=== PATIENT | female | born 1930 | race Caucasian/White ===

== ENCOUNTER 2018-05-24 15:32 | Inpatient (IN) | payer MEDICARE ==
[2018-05-24 17:06] LABS: CKMB 1.9 ng/mL (0-6.6)
[2018-05-24] MEDS ORDERED: Furosemide 40 MG/4 ML VIAL ONE (17:45)
--- NOTE | 2018-05-24 18:39 | ULT ---
BILATERAL LOWER EXTREMITY VENOUS DUPLEX ULTRASOUND: History: Bilateral lower extremity pain. Chest pain. FINDINGS: Exam performed from groin to ankle including visualized greater saphenous, common femoral, superficia l femoral, profunda femoral, popliteal, trifurcation, and posterior tibial vein regions. There is pha sic flow at all levels with normal compressibility and normal augmentation. No intraluminal thrombus. IMPRESSION: No evidence for deep venous thrombosis. POS: MARIANELA
[2018-05-24] MEDS ORDERED: Dextrose 5% in Water 1,000 ML IV PRN (19:27)
[2018-05-24] MEDS ORDERED: Senokot S 8.6-50 MG TAB PO PRN (19:27)
[2018-05-24] MEDS ORDERED: Guaifenesin DM 100-10/5 ML UDCUP PO PRN (19:27)
[2018-05-24] MEDS ORDERED: Dextrose 50% Abboject 50 ML SYRINGE SLOW IVP PRN (19:27)
[2018-05-24] MEDS ORDERED: Morphine 2 MG/ML SYRINGE ONE (20:22)
--- NOTE | 2018-05-24 20:40 | HP ---
REASON FOR ADMISSION: New onset CHF exacerbation, chest pain. HISTORY OF PRESENTING ILLNESS: The patient gives history of having chest pain in the retrosternal area last night. This lasted the whole night. She called her son at around 7:00 a.m. Then it finally eased out when he gave two tablets of sublingual nitroglycerin. But the patient developed the same pain again at 12: 15 p.m. This time it was 10/10 in intensity with no radiation. The pain is still present. But the intensity is around 2-3/10 at present. No cough or expectoration. No history of peptic ulcer in the past. No complaints of palpitations or PND. The patient had significant prior history of CABG for three-vessel disease done more than 15 years ago at [facility]. She has had two stents placed likely at [facility]. No complaints of fever, cough, or expectoration. PAST MEDICAL AND SURGICAL HISTORY: Hypertension, coronary artery disease,. Prior CABG 15 years ago at [facility], two stents placed, likely either at [facility] or at [facility] here. Has had a pacemaker placed by Dr. Nat Alford, school age program associate. Diabetes mellitus type 2, history of TIA, cholecystectomy, dyslipidemia, peripheral neuropathy, dementia, hypertension, and hypothyroidism. CURRENT MEDICATIONS: The patient is on; 1. Fenofibrate 145 mg p.o. daily. 2. Levothyroxine 88 mcg p.o. daily. 3. Hydralazine 25 mg p.o. three times daily. 4. Donepezil 10 mg daily. 5. Namenda extended release 14 mg daily. 6. Lyrica 75 mg three times daily. 7. Butler p.r.n. for pain. 8. Ranitidine 150 mg twice daily. 9. Meloxicam p.r.n. 10. Glargine insulin 18 units subcu q.a.m. 11. Pravastatin 40 mg p.o. daily. 12. Multivitamin one tablet once daily. 13. Aspirin 81 mg p.o. daily. 14. Plavix 75 mg p.o. daily. ALLERGIES: NO KNOWN DRUG ALLERGIES. PERSONAL HISTORY: Does not abuse alcohol or drugs. No history of smoking. FAMILY HISTORY: Mother at the age of 88 years. Father at the age of 70. Both of natural causes per family members at bedside. CODE STATUS: Full. Power of consumer attorney is her son. REVIEW OF SYSTEMS: CONSTITUTIONAL: Negative for weight loss or gain, ability to conduct usual activities. SKIN: Negative for rash, itching. EYES: Negative for double vision, pain. ENT/MOUTH: Negative for nose bleeding, neck stiffness, pain, tenderness. CARDIOVASCULAR: Negative for palpitations, dyspnea on exertion, orthopnea. RESPIRATORY: Negative for shortness of breath, wheezing, cough, hemoptysis, fever or night sweats. GASTROINTESTINAL: Negative for poor appetite, abdominal pain, heartburn, nausea , vomiting, constipation, or diarrhea. GENITOURINARY: Negative for urgency, frequency, dysuria, nocturia. MUSCULOSKELETAL: Negative for pain, swelling. NEUROLOGIC/PSYCHIATRIC: Negative for anxiety, depression. ALLERGY/IMMUNOLOGIC: Negative for skin rash, bleeding tendency. PHYSICAL EXAMINATION: GENERAL: The patient is an 88-year-old female, who is currently not in any acute distress and is chest pain-free at present. VITAL SIGNS: Blood pressure 160/74, pulse 80 per minute, respiratory rate 16 per minute, temperature 98.7 degrees Fahrenheit, saturating 95% on room air. NECK: Supple. No elevated JVD. HEENT: Eyes, extraocular muscles intact. Pupils reacting to light. Oral cavity, mucous membranes are moist. No exudates or congestion. CARDIOVASCULAR SYSTEM: S1, S2 heard. Regular rhythm. RESPIRATORY SYSTEM: Air entry 1+ bilateral. Basal rales plus bilateral. ABDOMEN: Soft. Bowel sounds heard. No tenderness, rigidity, or guarding. EXTREMITIES: No peripheral edema, but the left lower extremity is slightly bigger than the right lower extremity. She has had vein harvesting done on the right lower extremity, but the left is bigger in size. The peripheral pulses are 1+ bilateral. No ischemic ulcerations or gangrene. CENTRAL NERVOUS SYSTEM: No gross focal deficits noted. The patient is alert, awake, and fairly oriented. PSYCHIATRIC SYSTEM: The patient's mood is euthymic. No hallucinations or delusions. LABORATORY DATA: EKG done shows AFib at 83 beats per minute. There is nonspecific ST-T wave changes seen. White count of 5, H and H 10 and 31, platelet count 250 with 62% neutrophils, MCV is 97. Electrolytes stable. BUN 38, creatinine 1.7, serum glucose 157. Troponin I is indeterminate, peaking up to 0.08. BNP 1082. Albumin is 3.2. A chest x-ray done shows mild cardiomegaly with peripheral vascular congestion. Ultrasound venous Doppler of lower extremities done showed no evidence of DVT. CLINICAL IMPRESSION AND PLAN: The patient will be admitted to telemetry for acute new onset congestive heart failure exacerbation. The patient also has acute kidney injury on top of her likely chronic kidney disease. The patient likely follows up with [facility], but the family is unclear. She has seen Dr. Nat Alford, school age program associate, likely steel roller, who placed the pacemaker. She will be on Lasix 40 mg IV q.12 hourly. We will continue aspirin, Plavix, hydralazine, Pravachol, Zetia, and Lantus at 18 units daily. We will also continue her Tricor and ranitidine as before. Echo with 2D Doppler for LV function will be obtained. Likely her kidney function will get worse and the family is clearly aware. She likely has demand ischemia from congestive heart failure exacerbation. She has had prior coronary artery bypass graft done 15 years ago at [facility] and has had two stents placed after that, likely at [facility], which the family is not aware. We will obtain Cardiology consultation with Dr. Nixon and Renal consultation with Dr. Garcia who are on-call. Job ID: [id number] [facility]
[2018-05-24] MEDS ORDERED: Non-Formulary Item 1 EACH (Ranitidine Hcl [Ranitidine Hcl] 150 MG) PO SCH (21:00)
[2018-05-24] MEDS ORDERED: Pravastatin Sodium 40 MG TAB PO SCH (21:00)
[2018-05-24] MEDS ORDERED: Famotidine 20 MG TAB ONE (21:59)
[2018-05-25] MEDS: Famotidine 20 MG TAB PO SCH ×2 (00:59→20:18)
[2018-05-25] MEDS: Atorvastatin Calcium 10 MG TAB PO SCH ×2 (00:59→20:18)
[2018-05-25] MEDS ORDERED: hydrALAZINE 25 MG TAB PO SCH (02:15)
[2018-05-25] MEDS ORDERED: Pregabalin 75 MG CAP PO SCH (02:15)
[2018-05-25 04:24] VITALS: BMI 25.6
[2018-05-25 06:00] LABS: Anion Gap 12 mmol/L (10-20); BUN (Urea Nitrogen) 35 mg/dL (9.8-20.1); BUN/Creatinine Ratio 19.55; Calc. Creatinine Clearance 23 mL/min (70-130); Calcium 9.7 mg/dL (7.8-10.44); Carbon Dioxide 28 mmol/L (23-31); Chloride 103 mmol/L (98-107); Estimated GFR-MDRD 27; Glucose 124 mg/dL (83-110); Phosphorus 2.5 mg/dL (2.3-4.7); Potassium 3.5 mmol/L (3.5-5.1); Sodium 139 mmol/L (136-145)
[2018-05-25 06:16] LABS: Band 4 % (5-11); Hemoglobin 10.6 g/dL (12.0-16.0); Hypochromia SLIGHT = 6-15 cells (100X) (0-5/hpf); Lymphocytes 26 % (21-51); MDiff Complete? YES; Mean Corpuscular HGB CONC 33.1 g/dL (32.0-36.0); Mean Corpuscular Hemoglobin 32.5 pg (27.0-31.0); Mean Corpuscular Volume 98.2 fL (78.0-98.0); Mean Platelet Volume 7.1 fL (7.4-10.4); Monocytes 4 % (0-10); Neutrophil 66 % (42-75); Platelet Count 253 thou/uL (130-400); Platelet Morphology Comment Appears Adequate; RBC Distribution Width 12.6 % (11.5-14.5); Red Blood Cell (RBC) Count 3.25 mill/uL (4.20-5.40); White Blood Cell (WBC) Count 4.7 thou/uL (4.8-10.8)
[2018-05-25] MEDS: Furosemide 40 MG/4 ML VIAL SLOW IVP SCH ×2 (06:25→16:49)
[2018-05-25] MEDS: Levothyroxine Sodium 88 MCG TAB PO SCH (06:25)
[2018-05-25] MEDS ORDERED: Enoxaparin Sodium 40 MG/0.4 ML SYRINGE SC SCH (09:00)
[2018-05-25] MEDS ORDERED: INSULIN GLARGINE HUM REC ANLOG 18 UNIT SQ SCH (09:00)
[2018-05-25] MEDS ORDERED: Carvedilol 3.125 MG TAB PO SCH (09:15)
[2018-05-25] MEDS: Ezetimibe 10 MG TAB PO SCH (09:50)
[2018-05-25] MEDS: Fenofibrate Nanocrystallized 145 MG TAB PO SCH (09:50)
[2018-05-25] MEDS: hydrALAZINE 25 MG TAB PO SCH ×3 (09:50→16:49)
[2018-05-25] MEDS: Clopidogrel Bisulfate 75 MG TAB PO SCH (09:50)
[2018-05-25] MEDS: Insulin Glargine 18 UNITS in Pre-Filled Syringe 1 EACH SC SCH (09:50)
--- NOTE | 2018-05-25 13:33 | PDOC.PN ---
- Subjective Encounter Start Date: 05/25/18 Encounter Start Time: 09:30 Subjective: no sob, feels better -: no chest pain or palp - Objective Resuscitation Status - Order Detail: 05/24/18 19:20 Resuscitation Status Routine Resuscitation Status: FULL: Full Resuscitation MAR Reviewed: Yes Vital Signs & Weight: Vital Signs (12 hours) Temp Pulse Resp BP BP Pulse Ox 05/25/18 12:55 97.8 F 73 16 105/64 97 05/25/18 07:35 97.6 F 74 20 165/74 H 97 05/25/18 04:13 98.0 F 77 17 137/65 95 05/25/18 02:14 77 187/77 H Weight Weight 140 lb 1.6 oz I&O: 05/24/18 05/25/18 05/26/18 06:59 06:59 06:59 Intake Total 200 Output Total 700 Balance -500 Result Diagrams: 05/25/18 05:09 05/25/18 05:09 Additional Labs: Accuchecks 05/25/18 05/25/18 05/24/18 10:47 05:50 23:46 POC Glucose 212 H 126 H 218 H Phys Exam - Physical Examination HEENT: PERRLA, moist MMs Neck: no JVD, supple Respiratory: no wheezing, no rales Cardiovascular: RRR, no significant murmur Gastrointestinal: soft, non-tender, positive bowel sounds Musculoskeletal: no edema, pulses present Neurological: non-focal, moves all 4 limbs Psychiatric: normal affect, A&O x 3 Dx/Plan (1) Acute exacerbation of CHF (congestive heart failure) Code(s): I50.9 - HEART FAILURE, UNSPECIFIED Status: Acute Qualifiers: Heart failure type: unspecified Qualified Code(s): I50.9 - Heart failure, unspecified (2) HTN (hypertension) Code(s): I10 - ESSENTIAL (PRIMARY) HYPERTENSION Status: Chronic Qualifiers: Hypertension type: essential hypertension Qualified Code(s): I10 - Essential (primary) hypertension (3) Chest pain Code(s): R07.9 - CHEST PAIN, UNSPECIFIED Status: Resolved Qualifiers: Ischemic chest pain type: stable angina pectoris (4) CAD (coronary artery disease) Code(s): I25.10 - ATHSCL HEART DISEASE OF [place] CORONARY ARTERY W/O ANG PCTRS Status: Chronic Qualifiers: Coronary Disease-Associated Artery/Lesion type: bypass graft [place] vs. transplanted heart: [place] heart Associated angina: with stable angina Qualified Code(s): I25.708 - Atherosclerosis of coronary artery bypass graft(s) , unspecified, with other forms of angina pectoris (5) Dyslipidemia Code(s): E78.5 - HYPERLIPIDEMIA, UNSPECIFIED Status: Chronic (6) Hypothyroidism Code(s): E03.9 - HYPOTHYROIDISM, UNSPECIFIED Status: Chronic Qualifiers: Hypothyroidism type: unspecified Qualified Code(s): E03.9 - Hypothyroidism , unspecified (7) DM type 2 (diabetes mellitus, type 2) Status: Chronic Qualifiers: Diabetes mellitus jail insulin use: with jail use Diabetes mellitus complication status: with unspecified complications Qualified Code(s) : E11.8 - Type 2 diabetes mellitus with unspecified complications; Z79.4 - termite treater (current) use of insulin (8) DOT (acute kidney injury) Code(s): N17.9 - ACUTE KIDNEY FAILURE, UNSPECIFIED Status: Acute - Plan is on lasix q12h, will switch to oral in am -: echo is pending -: continue asp, lipitor,zetia,tricor,coreg,hydralazine -: likely has ckd -: to ambulate as tolerated * . Review of Systems - Medications/Allergies Allergies/Adverse Reactions: Allergies Allergy/AdvReac Type Severity Reaction Status Date / Time No Known Drug Allergies Allergy Verified 09/02/16 22:20 Medications: Current Medications Acetaminophen (Tylenol) 650 mg PO Q4H PRN PRN Reason: Headache/Fever/Mild Pain (1-3) Aspirin (Aspirin Chewable) 81 mg PO DAILY [facility] Last Admin: 05/25/18 09:45 Dose: 81 mg Atorvastatin Calcium (Lipitor) 10 mg PO QPM [facility] Last Admin: 05/25/18 00:59 Dose: Not Given Carvedilol (Coreg) 3.125 mg PO BID-[facility] Clopidogrel Bisulfate (Plavix) 75 mg PO DAILY [facility] Last Admin: 05/25/18 09:50 Dose: 75 mg Dextrose/Water (Dextrose 50%) 25 gm SLOW IVP PRN PRN PRN Reason: Hypoglycemia Ezetimibe (Zetia) 10 mg PO DAILY [facility] Last Admin: 05/25/18 09:50 Dose: 10 mg Enoxaparin Sodium (Lovenox) 40 mg SC 0900 [facility] Last Admin: 05/25/18 09:50 Dose: 40 mg Famotidine (Pepcid) 20 mg PO QPM [facility] Last Admin: 05/25/18 00:59 Dose: Not Given Fenofibrate (Tricor) 145 mg PO DAILY [facility] Last Admin: 05/25/18 09:50 Dose: 145 mg Furosemide (Lasix) 40 mg SLOW IVP 0600,1400 [facility] Last Admin: 05/25/18 06:25 Dose: 40 mg Glucagon (Glucagon) 1 mg IM PRN PRN PRN Reason: Hypoglycemia Guaifenesin/Dextromethorphan (Robitussin Dm) 15 ml PO Q4H PRN PRN Reason: Cough Hydralazine HCl (Apresoline) 25 mg PO TID-[facility] Last Admin: 05/25/18 13:03 Dose: Not Given Dextrose/Water (D5w) 1,000 mls @ 0 mls/hr IV .Q0M PRN PRN Reason: Hypoglycemia Insulin Glargine 18 units/ (Miscellaneous Medication) 0.18 mls @ 0 mls/hr SC QAM [facility] Last Admin: 05/25/18 09:50 Dose: 0.18 mls Insulin Human Lispro (Humalog) 0 units SC .MODERATE SLIDING SC PRN PRN Reason: Moderate Correctional Scale Levothyroxine Sodium (Synthroid) 88 mcg PO 0600 [facility] Last Admin: 05/25/18 06:25 Dose: 88 mcg Senna/Docusate Sodium (Senokot S) 2 tab PO BIDPRN PRN PRN Reason: Constipation Sodium Chloride (Flush - Normal Saline) 10 ml IVF PRN PRN PRN Reason: Saline Flush Tramadol HCl (Ultram) 25 mg PO DAILY PRN PRN Reason: Mild Pain (1-3)
[2018-05-25] MEDS: Carvedilol 3.125 MG TAB PO SCH (16:53)
[2018-05-25] MEDS: HumaLOG 300 UNITS/3 ML VIAL SC PRN ×2 (18:33→20:44)
[2018-05-25] MEDS: traMADol HCl 50 MG TAB PO PRN (18:35)
--- NOTE | 2018-05-26 03:14 | CON ---
DATE OF CONSULTATION: CONSULTING PHYSICIAN: Harvey Garcia MD REQUESTING PHYSICIAN: Dr. Park. REASON FOR CONSULTATION: Chest pain. IMPRESSION: Acute kidney injury versus chronic kidney disease. PLAN: 1. Hemodynamic support. 2. Further management will be dependent on the clinical course. HISTORY OF PRESENT ILLNESS: This is of 88-year-old female patient who presented with chest pain, chest discomfort, came to hospital today with elevated creatinine potential nephrotoxic agents. PAST MEDICAL HISTORY: Significant for hypertension; coronary artery disease, status post CABG, status post cardiac pacemaker, type 2 diabetes, history of TIA, cholecystectomy, dyslipidemia, hypertension. MEDICATIONS: Reviewed and as documented on [facility]. ALLERGIES: NO KNOWN DRUG ALLERGIES. SOCIAL HISTORY: No alcohol. No tobacco. No illicit drug use. FAMILY HISTORY: Noncontributory to the presenting illness. REVIEW OF SYSTEMS: As documented in the body of the history. All other systems reviewed and found not to be significantly related to present illness. PHYSICAL EXAMINATION: GENERAL: The patient was found not to be in any physical distress. VITAL SIGNS: Noted with the following vital signs; blood pressure of 160/74, pulse of 80, respiratory rate of 16, and O2 saturation 95%. HEENT: Examination unremarkable. CARDIOVASCULAR SYSTEM: First and second heart sounds were heard. RESPIRATORY: Significant for bilateral wheeze. DIGESTIVE SYSTEM: Revealed a benign abdomen. EXTREMITIES: No peripheral edema. SKIN: No new gross rash. LYMPHATICS: No peripheral lymphadenopathy. SUMMARY: An 88-year-old female patient who presented here with chest discomfort and shortness of breath, noted with elevated creatinine. Thank you for this consultation. We will follow with you. Job ID: [id number]
[2018-05-26 06:18] LABS: Albumin 2.9 g/dL (3.4-4.8); Anion Gap 13 mmol/L (10-20); BUN (Urea Nitrogen) 58 mg/dL (9.8-20.1); BUN/Creatinine Ratio 18.47; Calc. Creatinine Clearance 13 mL/min (70-130); Calcium 8.8 mg/dL (7.8-10.44); Carbon Dioxide 27 mmol/L (23-31); Chloride 99 mmol/L (98-107); Estimated GFR-MDRD 14; Glucose 146 mg/dL (83-110); Phosphorus 3.7 mg/dL (2.3-4.7); Potassium 3.8 mmol/L (3.5-5.1); Sodium 135 mmol/L (136-145)
[2018-05-26] MEDS: Levothyroxine Sodium 88 MCG TAB PO SCH (06:30)
[2018-05-26] MEDS ORDERED: Sodium Chloride 0.45% 1,000 ML IV SCH (08:00)
[2018-05-26] MEDS ORDERED: Furosemide 40 MG TAB PO SCH (09:00)
[2018-05-26] MEDS: Ezetimibe 10 MG TAB PO SCH (09:21)
[2018-05-26] MEDS: Insulin Glargine 18 UNITS in Pre-Filled Syringe 1 EACH SC SCH (09:21)
[2018-05-26] MEDS: Clopidogrel Bisulfate 75 MG TAB PO SCH (09:21)
[2018-05-26] MEDS: Fenofibrate Nanocrystallized 145 MG TAB PO SCH (09:21)
[2018-05-26] MEDS: Enoxaparin Sodium 30 MG/0.3 ML SYRINGE SC SCH (09:21)
[2018-05-26] MEDS: Carvedilol 3.125 MG TAB PO SCH ×2 (09:21→16:58)
--- NOTE | 2018-05-26 09:38 | CON ---
DATE OF CONSULTATION: HISTORY: Sally Katz is an 88-year-old white female, admitted with chest discomfort. She has history of CABG 15 years ago at [facility] in [place]. She also had 2 stents placed, although she is very unclear where that occurred. She thinks it was approximately 8 years ago and she has been on Plavix for the last 8 years. She also has a pacemaker, but is unable to tell me where that was placed and by which doctor. She also is uncertain of the type of pacemaker. Yesterday morning, she called her son at approximately 7:00 a.m., complaining of chest discomfort. She states that it lasted approximately 24 hours. She describes this as a tightness that was somewhat of a pounding sensation, seem to keep rhythm with her heartbeat. She denied any pleuritic component to the pain. Despite 24 hours of her symptoms, troponin I is in the low intermediate range. She has never been told that she has a weak heart, although I am uncertain of her recollection. PAST MEDICAL HISTORY: Hypertension, hypercholesterolemia, and pacemaker placement by Dr. Alford according to the hospital record, although she does not have a card in her possession at this time. Diabetes, history of TIA, peripheral neuropathy, dementia, and hypothyroidism. PAST SURGICAL HISTORY: Cholecystectomy and CABG. Pacemaker placement. MEDICATIONS: 1. Levothyroxine 88 mcg daily. 2. Aspirin 81 daily. 3. Aricept 10 mg at bedtime. 4. Fenofibrate 145 mg daily. 5. Apresoline 25 mg t.i.d. 6. Insulin 18 units q.a.m. 7. Mobic 7.5 daily. 8. Naproxen 220 b.i.d. 9. Lisbet 75 mg t.i.d. 10. Ranitidine 150 b.i.d. p.r.n. 11. Vitamin B complex. ALLERGIES: NONE. SOCIAL HISTORY: She does not smoke or drink. FAMILY HISTORY: Negative for coronary artery disease. REVIEW OF SYSTEMS: Negative, however, I am uncertain of her accuracy. PHYSICAL EXAMINATION: VITAL SIGNS: Blood pressure 104/58, pulse of 81. HEENT: PERRL. NECK: Supple. CHEST: Clear. CARDIOVASCULAR: S1 and S2 are normal. There are no S3, S4, or murmurs. ABDOMEN: Normal bowel sounds without tenderness. EXTREMITIES: Revealed no edema. SKIN: Warm and dry. NEUROLOGICAL: Grossly intact except for her memory. DIAGNOSTIC DATA: EKG revealed atrial fibrillation with nonspecific ST and T- wave changes. Echocardiogram revealed severe concentric left ventricular hypertrophy , severe left ventricular dysfunction with ejection fraction of 25% to 30%, moderate left atrial enlargement, moderate mitral regurgitation, aortic valvular sclerosis, and mild tricuspid regurgitation. Chest x-ray is unremarkable. Hemoglobin 10.6 , hematocrit 31.9, white count 4700, and platelets 253,000. Sodium 135, potassium 3.8, chloride 99, carbon dioxide 27, BUN is increased from 35 to 58, and creatinine is increased from 1.79 to 3.14. Troponin I is up to 0.087. BNP 1078.9. TSH is normal. IMPRESSION: 1. Severe left ventricular dysfunction with ejection fraction of 25% to 30% with severe left ventricular hypertrophy. 2. Status post coronary artery bypass grafting. 3. History of stent placement, exactly when and where is unclear. 4. Status post pacemaker placement. 5. Hypertension. 6. Hyperlipidemia. 7. Diabetes. 8. Hypothyroidism. 9. Chronic kidney disease with acute kidney injury. 10. Atrial fibrillation of uncertain duration. RECOMMENDATIONS: Ms. Katz certainly has severe left ventricular dysfunction. Her symptoms are somewhat unclear. She is in atrial fibrillation. It is unclear if that is a new finding or not. Some of her symptoms may have been related to a rapid rate; however, she is not exhibiting a rapid rate since being admitted. Certainly, thought needs to be given to upgrade to defibrillator at some time once it has been established that her left ventricular dysfunction is a permanent finding. Records have been requested from [facility] in [facility], which hopefully will shed more light on her current problems. It did appears that she has had demand ischemia. I doubt she has had myocardial infarction with her description of her symptoms lasting 24 hours and only indeterminate troponin I. Further recommendations will be made once we hopefully have more records available. Job ID: [id number] [facility]TDD
--- NOTE | 2018-05-26 10:52 | PDOC.PN ---
- Subjective Encounter Start Date: 05/26/18 Encounter Start Time: 10:00 Subjective: no sob or palp or chest pain - Objective Resuscitation Status - Order Detail: 05/24/18 19:20 Resuscitation Status Routine Resuscitation Status: FULL: Full Resuscitation MAR Reviewed: Yes Vital Signs & Weight: Vital Signs (12 hours) Temp Pulse Resp BP BP Pulse Ox 05/26/18 07:40 97.7 F 81 18 104/58 L 98 05/26/18 03:48 98.1 F 74 16 119/59 L 94 L Weight Weight 137 lb 9.6 oz I&O: 05/25/18 05/26/18 05/27/18 06:59 06:59 06:59 Intake Total 200 100 Output Total 700 350 Balance -500 -250 Result Diagrams: 05/25/18 05:09 05/26/18 05:26 Additional Labs: Accuchecks 05/26/18 05/25/18 05/25/18 05:26 20:27 16:28 POC Glucose 156 H 297 H 252 H 05/25/18 10:47 POC Glucose 212 H Phys Exam - Physical Examination HEENT: PERRLA, sclera anicteric Neck: no JVD, supple Respiratory: no wheezing, no rales Cardiovascular: RRR, no significant murmur Gastrointestinal: soft, non-tender, positive bowel sounds Musculoskeletal: no edema, pulses present Neurological: non-focal, moves all 4 limbs Psychiatric: normal affect Dx/Plan (1) Acute exacerbation of CHF (congestive heart failure) Code(s): I50.9 - HEART FAILURE, UNSPECIFIED Status: Acute Qualifiers: Heart failure type: systolic Qualified Code(s): I50.23 - Acute on chronic systolic (congestive) heart failure Comment: ef of 25%, severe concentric lvh (2) HTN (hypertension) Code(s): I10 - ESSENTIAL (PRIMARY) HYPERTENSION Status: Chronic Qualifiers: Hypertension type: essential hypertension Qualified Code(s): I10 - Essential (primary) hypertension (3) Chest pain Code(s): R07.9 - CHEST PAIN, UNSPECIFIED Status: Resolved Qualifiers: Ischemic chest pain type: stable angina pectoris (4) CAD (coronary artery disease) Code(s): I25.10 - ATHSCL HEART DISEASE OF [place] CORONARY ARTERY W/O ANG PCTRS Status: Chronic Qualifiers: Coronary Disease-Associated Artery/Lesion type: bypass graft [place] vs. transplanted heart: [place] heart Associated angina: with stable angina Qualified Code(s): I25.708 - Atherosclerosis of coronary artery bypass graft(s) , unspecified, with other forms of angina pectoris (5) Dyslipidemia Code(s): E78.5 - HYPERLIPIDEMIA, UNSPECIFIED Status: Chronic (6) Hypothyroidism Code(s): E03.9 - HYPOTHYROIDISM, UNSPECIFIED Status: Chronic Qualifiers: Hypothyroidism type: unspecified Qualified Code(s): E03.9 - Hypothyroidism , unspecified (7) DM type 2 (diabetes mellitus, type 2) Status: Chronic Qualifiers: Diabetes mellitus technician terminal and repeater insulin use: with technician terminal and repeater use Diabetes mellitus complication status: with unspecified complications Qualified Code(s) : E11.8 - Type 2 diabetes mellitus with unspecified complications; Z79.4 - adjunct faculty for medical terminology (current) use of insulin (8) DOT (acute kidney injury) Code(s): N17.9 - ACUTE KIDNEY FAILURE, UNSPECIFIED Status: Acute - Plan creatinine has gone up to 3.1 this am -: will dc lasix, gentle iv hydration -: tried calling son, cant reach him -: awaiting records from [facility] and [facility] -: on asp, coreg, zetia, tricor. DC hydralazine due to low sbp * . Review of Systems - Medications/Allergies Allergies/Adverse Reactions: Allergies Allergy/AdvReac Type Severity Reaction Status Date / Time No Known Drug Allergies Allergy Verified 09/02/16 22:20 Medications: Current Medications Acetaminophen (Tylenol) 650 mg PO Q4H PRN PRN Reason: Headache/Fever/Mild Pain (1-3) Aspirin (Aspirin Chewable) 81 mg PO DAILY [facility] Last Admin: 05/26/18 09:21 Dose: 81 mg Atorvastatin Calcium (Lipitor) 10 mg PO QPM [facility] Last Admin: 05/25/18 20:18 Dose: 10 mg Carvedilol (Coreg) 3.125 mg PO BID-[facility] Last Admin: 05/26/18 09:21 Dose: 3.125 mg Clopidogrel Bisulfate (Plavix) 75 mg PO DAILY [facility] Last Admin: 05/26/18 09:21 Dose: 75 mg Dextrose/Water (Dextrose 50%) 25 gm SLOW IVP PRN PRN PRN Reason: Hypoglycemia Ezetimibe (Zetia) 10 mg PO DAILY [facility] Last Admin: 05/26/18 09:21 Dose: 10 mg Enoxaparin Sodium (Lovenox) 30 mg SC 0900 [facility] Last Admin: 05/26/18 09:21 Dose: 30 mg Famotidine (Pepcid) 20 mg PO QPM [facility] Last Admin: 05/25/18 20:18 Dose: 20 mg Fenofibrate (Tricor) 145 mg PO DAILY [facility] Last Admin: 05/26/18 09:21 Dose: 145 mg Glucagon (Glucagon) 1 mg IM PRN PRN PRN Reason: Hypoglycemia Guaifenesin/Dextromethorphan (Robitussin Dm) 15 ml PO Q4H PRN PRN Reason: Cough Dextrose/Water (D5w) 1,000 mls @ 0 mls/hr IV .Q0M PRN PRN Reason: Hypoglycemia Insulin Glargine 18 units/ (Miscellaneous Medication) 0.18 mls @ 0 mls/hr SC QAM [facility] Last Admin: 05/26/18 09:21 Dose: 0.18 mls Sodium Chloride (1/2 Normal Saline) 1,000 mls @ 50 mls/hr IV .Q20H [facility] Stop: 05/27/18 03:59 Last Admin: 05/26/18 09:20 Dose: 1,000 mls Insulin Human Lispro (Humalog) 0 units SC .MODERATE SLIDING SC PRN PRN Reason: Moderate Correctional Scale Last Admin: 05/25/18 20:44 Dose: 6 unit Levothyroxine Sodium (Synthroid) 88 mcg PO 0600 [facility] Last Admin: 05/26/18 06:30 Dose: 88 mcg Senna/Docusate Sodium (Senokot S) 2 tab PO BIDPRN PRN PRN Reason: Constipation Sodium Chloride (Flush - Normal Saline) 10 ml IVF PRN PRN PRN Reason: Saline Flush Tramadol HCl (Ultram) 25 mg PO DAILY PRN PRN Reason: Mild Pain (1-3) Last Admin: 05/25/18 18:35 Dose: 25 mg
[2018-05-26] MEDS: HumaLOG 300 UNITS/3 ML VIAL SC PRN (11:53)
[2018-05-26] MEDS: Famotidine 20 MG TAB PO SCH (21:31)
[2018-05-26] MEDS: Atorvastatin Calcium 10 MG TAB PO SCH (21:31)
--- NOTE | 2018-05-26 22:15 | PRG ---
DATE OF SERVICE: 05/26/2018 SUBJECTIVE: The patient noted with the following vital signs. OBJECTIVE: VITAL SIGNS: Afebrile. Temperature 97.7, pulse 74, respiratory rate of 18, O2 saturation of 98% with a blood pressure of 108/59. HEENT: Unremarkable. CARDIOVASCULAR SYSTEM: First and second heart sounds were heard. RESPIRATORY SYSTEM: Clear to auscultation. DIGESTIVE SYSTEM: Revealed a benign abdomen. EXTREMITIES: No peripheral edema. SKIN: No new gross rash. LYMPHATICS: No peripheral lymphadenopathy. LABORATORY INVESTIGATION: Significant for creatinine that has gone up to 3.14 with BUN of 58. IMPRESSION: 1. Acute on chronic kidney disease. This is likely hemodynamically mediated/cardiorenal syndrome in the context of relative low blood pressure as compared to the patient's baseline blood pressure that is to be on the higher side. 2. Chest discomfort, query cause, may be related to cardiac arrhythmia, versus coronary artery disease. PLAN: 1. Hemodynamic support and avoid potentially nephrotoxic agents. 2. . 3. For this patient undergo any form of cardiac transition, we will strongly recommend the lowest possible dose in conjunction with contrast prophylaxis. 4. I do agree with gentle rehydration. 5. Further management to be dependent on the clinical course. Job ID: [id number]
[2018-05-27] MEDS: HumaLOG 300 UNITS/3 ML VIAL SC PRN ×3 (00:14→21:01)
[2018-05-27 06:08] LABS: Albumin 2.7 g/dL (3.4-4.8); Anion Gap 13 mmol/L (10-20); BUN (Urea Nitrogen) 82 mg/dL (9.8-20.1); BUN/Creatinine Ratio 20.65; Calc. Creatinine Clearance 10 mL/min (70-130); Calcium 8.5 mg/dL (7.8-10.44); Carbon Dioxide 27 mmol/L (23-31); Chloride 99 mmol/L (98-107); Estimated GFR-MDRD 11; Glucose 144 mg/dL (83-110); Phosphorus 4.5 mg/dL (2.3-4.7); Potassium 3.6 mmol/L (3.5-5.1); Sodium 135 mmol/L (136-145)
[2018-05-27] MEDS: Levothyroxine Sodium 88 MCG TAB PO SCH (06:15)
[2018-05-27] MEDS: Sodium Chloride 0.45% 1,000 ML IV SCH ×2 (07:59→21:00)
[2018-05-27] MEDS: Carvedilol 3.125 MG TAB PO SCH ×2 (08:00→17:09)
[2018-05-27] MEDS: Fenofibrate Nanocrystallized 145 MG TAB PO SCH (08:00)
[2018-05-27] MEDS: Clopidogrel Bisulfate 75 MG TAB PO SCH (08:00)
[2018-05-27] MEDS: Ezetimibe 10 MG TAB PO SCH (08:00)
[2018-05-27] MEDS: Enoxaparin Sodium 30 MG/0.3 ML SYRINGE SC SCH (08:00)
[2018-05-27] MEDS: Insulin Glargine 18 UNITS in Pre-Filled Syringe 1 EACH SC SCH (08:00)
--- NOTE | 2018-05-27 13:55 | PDOC.PN ---
- Subjective Encounter Start Date: 05/27/18 Encounter Start Time: 10:35 Subjective: no sob, no complaints of chest pain or palp -: slept better last night - Objective Resuscitation Status - Order Detail: 05/24/18 19:20 Resuscitation Status Routine Resuscitation Status: FULL: Full Resuscitation MAR Reviewed: Yes Vital Signs & Weight: Vital Signs (12 hours) Temp Pulse Pulse Pulse Resp BP BP 05/27/18 11:43 97.9 F 70 16 05/27/18 10:25 69 70 151/66 H 131/59 L 05/27/18 08:00 05/27/18 07:28 97.9 F 75 16 05/27/18 03:38 97.9 F 71 16 BP Pulse Ox 05/27/18 11:43 116/56 L 97 05/27/18 10:25 05/27/18 08:00 97 05/27/18 07:28 102/53 L 97 05/27/18 03:38 118/57 L 97 Weight Weight 142 lb 12.8 oz I&O: 05/26/18 05/27/18 05/28/18 06:59 06:59 06:59 Intake Total 100 1111 Output Total 350 Balance -250 1111 Result Diagrams: 05/25/18 05:09 05/27/18 05:02 Additional Labs: Accuchecks 05/27/18 05/27/18 05/26/18 11:24 05:52 20:25 POC Glucose 326 H 158 H 279 H 05/26/18 16:52 POC Glucose 195 H Phys Exam - Physical Examination HEENT: PERRLA, moist MMs Neck: no JVD, supple Respiratory: no wheezing, no rales Cardiovascular: RRR, no significant murmur Gastrointestinal: soft, non-tender, positive bowel sounds Musculoskeletal: no edema, pulses present Neurological: non-focal, moves all 4 limbs Psychiatric: normal affect, A&O x 3 Dx/Plan (1) DOT (acute kidney injury) Code(s): N17.9 - ACUTE KIDNEY FAILURE, UNSPECIFIED Status: Acute (2) Acute exacerbation of CHF (congestive heart failure) Code(s): I50.9 - HEART FAILURE, UNSPECIFIED Status: Acute Qualifiers: Heart failure type: systolic Qualified Code(s): I50.23 - Acute on chronic systolic (congestive) heart failure Comment: ef of 25%, severe concentric lvh (3) HTN (hypertension) Code(s): I10 - ESSENTIAL (PRIMARY) HYPERTENSION Status: Chronic Qualifiers: Hypertension type: essential hypertension Qualified Code(s): I10 - Essential (primary) hypertension (4) Chest pain Code(s): R07.9 - CHEST PAIN, UNSPECIFIED Status: Resolved Qualifiers: Ischemic chest pain type: stable angina pectoris (5) CAD (coronary artery disease) Code(s): I25.10 - ATHSCL HEART DISEASE OF [place] CORONARY ARTERY W/O ANG PCTRS Status: Chronic Qualifiers: Coronary Disease-Associated Artery/Lesion type: bypass graft [place] vs. 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) , unspecified, with other forms of angina pectoris (6) Dyslipidemia Code(s): E78.5 - HYPERLIPIDEMIA, UNSPECIFIED Status: Chronic (7) Hypothyroidism Code(s): E03.9 - HYPOTHYROIDISM, UNSPECIFIED Status: Chronic Qualifiers: Hypothyroidism type: unspecified Qualified Code(s): E03.9 - Hypothyroidism , unspecified (8) DM type 2 (diabetes mellitus, type 2) Status: Chronic Qualifiers: Diabetes mellitus fdc insulin use: with fdc use Diabetes mellitus complication status: with unspecified complications Qualified Code(s) : E11.8 - Type 2 diabetes mellitus with unspecified complications; 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 d/w son Mr.Bob Avilez over phone and gave complete updates and current plan. Review of Systems - Medications/Allergies Allergies/Adverse Reactions: Allergies Allergy/AdvReac Type Severity Reaction Status Date / Time No Known Drug Allergies Allergy Verified 09/02/16 22:20 Medications: Current Medications Acetaminophen (Tylenol) 650 mg PO Q4H PRN PRN Reason: Headache/Fever/Mild Pain (1-3) Aspirin (Aspirin Chewable) 81 mg PO DAILY [place] Last Admin: 05/27/18 08:00 Dose: 81 mg Atorvastatin Calcium (Lipitor) 10 mg PO QPM [facility] Last Admin: 05/26/18 21:31 Dose: 10 mg Carvedilol (Coreg) 3.125 mg PO BID[facility] Last Admin: 05/27/18 08:00 Dose: 3.125 mg Clopidogrel Bisulfate (Plavix) 75 mg PO DAILY [facility] Last Admin: 05/27/18 08:00 Dose: 75 mg Dextrose/Water (Dextrose 50%) 25 gm SLOW IVP PRN PRN PRN Reason: Hypoglycemia Ezetimibe (Zetia) 10 mg PO DAILY [facility] Last Admin: 05/27/18 08:00 Dose: 10 mg Enoxaparin Sodium (Lovenox) 30 mg SC 0900 [facility] Last Admin: 05/27/18 08:00 Dose: 30 mg Famotidine (Pepcid) 20 mg PO QPM [facility] Last Admin: 05/26/18 21:31 Dose: 20 mg Fenofibrate (Tricor) 145 mg PO DAILY [facility] Last Admin: 05/27/18 08:00 Dose: 145 mg Glucagon (Glucagon) 1 mg IM PRN PRN PRN Reason: Hypoglycemia Guaifenesin/Dextromethorphan (Robitussin Dm) 15 ml PO Q4H PRN PRN Reason: Cough Dextrose/Water (D5w) 1,000 mls @ 0 mls/hr IV .Q0M PRN PRN Reason: Hypoglycemia Insulin Glargine 18 units/ (Miscellaneous Medication) 0.18 mls @ 0 mls/hr SC QAM [facility] Last Admin: 05/27/18 08:00 Dose: 0.18 mls Sodium Chloride (1/2 Normal Saline) 1,000 mls @ 75 mls/hr IV .[id number] [facility] Last Admin: 05/27/18 07:59 Dose: 1,000 mls Insulin Human Lispro (Humalog) 0 units SC .MODERATE SLIDING SC PRN PRN Reason: Moderate Correctional Scale Last Admin: 05/27/18 11:47 Dose: 8 unit Insulin Human Lispro (Humalog) 0 units SC .BEDTIME SLIDING SC PRN; Protocol PRN Reason: BEDTIME SLIDING SCALE Last Admin: 05/27/18 00:14 Dose: 3 unit Levothyroxine Sodium (Synthroid) 88 mcg PO 0600 [facility] Last Admin: 05/27/18 06:15 Dose: 88 mcg Senna/Docusate Sodium (Senokot S) 2 tab PO BIDPRN PRN PRN Reason: Constipation Sodium Chloride (Flush - Normal Saline) 10 ml IVF PRN PRN PRN Reason: Saline Flush Last Admin: 05/27/18 08:01 Dose: 10 ml Tramadol HCl (Ultram) 25 mg PO DAILY PRN PRN Reason: Mild Pain (1-3) Last Admin: 05/25/18 18:35 Dose: 25 mg
[2018-05-27] MEDS: Atorvastatin Calcium 10 MG TAB PO SCH (21:02)
[2018-05-27] MEDS: Famotidine 20 MG TAB PO SCH (21:02)
--- NOTE | 2018-05-27 23:15 | PRG ---
DATE OF SERVICE: 05/27/2018 SUBJECTIVE: The patient was seen and examined, no new complaint, noted with the following vital signs. OBJECTIVE: VITAL SIGNS: Afebrile, temperature 97.8; pulse 70; respiratory rate of 16; O2 saturation of 97% with blood pressure of 114/58. HEENT: Unremarkable. CARDIOVASCULAR SYSTEM: First and second heart sounds were heard. RESPIRATORY SYSTEM: Clear to auscultation. DIGESTIVE SYSTEM: Revealed a benign abdomen with positive bowel sounds. EXTREMITIES: No peripheral edema. SKIN: No new gross rash. LYMPHATICS: No peripheral lymphadenopathy. LABORATORY INVESTIGATION: Showed a creatinine of 3.97. IMPRESSION: Acute on chronic kidney disease, more or less hemodynamically mediated. PLAN: 1. I do agree with gentle IV fluid rehydration. 2. Avoid potentially nephrotoxic agents. 3. Renally dose all medications. 4. Further management will be dependent on the clinical course. Job ID: [id number]
[2018-05-28 05:38] LABS: Albumin 2.6 g/dL (3.4-4.8); Anion Gap 11 mmol/L (10-20); BUN (Urea Nitrogen) 75 mg/dL (9.8-20.1); BUN/Creatinine Ratio 26.88; Calc. Creatinine Clearance 15 mL/min (70-130); Calcium 8.4 mg/dL (7.8-10.44); Carbon Dioxide 27 mmol/L (23-31); Chloride 103 mmol/L (98-107); Estimated GFR-MDRD 16; Glucose 118 mg/dL (83-110); Phosphorus 3.6 mg/dL (2.3-4.7); Potassium 3.6 mmol/L (3.5-5.1); Sodium 137 mmol/L (136-145)
[2018-05-28] MEDS: Levothyroxine Sodium 88 MCG TAB PO SCH (05:45)
[2018-05-28] MEDS: Rivaroxaban 10 MG TAB PO SCH (09:00)
[2018-05-28] MEDS: Carvedilol 3.125 MG TAB PO SCH ×2 (09:00→17:31)
[2018-05-28] MEDS: Amiodarone 200 MG TAB PO SCH ×3 (09:00→20:45)
[2018-05-28] MEDS: Clopidogrel Bisulfate 75 MG TAB PO SCH (09:00)
[2018-05-28] MEDS: Insulin Glargine 18 UNITS in Pre-Filled Syringe 1 EACH SC SCH (09:00)
[2018-05-28] MEDS: Fenofibrate Nanocrystallized 145 MG TAB PO SCH (09:00)
[2018-05-28] MEDS: Ezetimibe 10 MG TAB PO SCH (09:01)
[2018-05-28] MEDS: Acetaminophen 325 MG TAB PO PRN (09:05)
--- NOTE | 2018-05-28 11:40 | PDOC.PN ---
- Subjective Encounter Start Date: 05/28/18 Encounter Start Time: 10:40 Subjective: no trouble breathing or chest pain -: slept well last night - Objective Resuscitation Status - Order Detail: 05/24/18 19:20 Resuscitation Status Routine Resuscitation Status: FULL: Full Resuscitation MAR Reviewed: Yes Vital Signs & Weight: Vital Signs (12 hours) Temp Pulse Resp BP BP Pulse Ox 05/28/18 09:15 96 05/28/18 07:40 98.0 F 69 18 131/61 96 05/28/18 03:24 97.9 F 81 15 120/58 L 97 Weight Weight 143 lb 4.8 oz I&O: 05/27/18 05/28/18 05/29/18 06:59 06:59 06:59 Intake Total 1111 1520 Balance 1111 1520 Result Diagrams: 05/25/18 05:09 05/28/18 04:51 Additional Labs: Accuchecks 05/28/18 05/28/18 05/27/18 11:22 05:36 20:45 POC Glucose 140 H 110 241 H 05/27/18 05/27/18 16:18 11:24 POC Glucose 106 326 H Phys Exam - Physical Examination HEENT: PERRLA, moist MMs Neck: no JVD, supple Respiratory: no wheezing, no rales Cardiovascular: RRR, no significant murmur Gastrointestinal: soft, non-tender, positive bowel sounds Musculoskeletal: no edema, pulses present Neurological: non-focal, moves all 4 limbs Psychiatric: normal affect, A&O x 3 Dx/Plan (1) DOT (acute kidney injury) Code(s): N17.9 - ACUTE KIDNEY FAILURE, UNSPECIFIED Status: Acute (2) Acute exacerbation of CHF (congestive heart failure) Code(s): I50.9 - HEART FAILURE, UNSPECIFIED Status: Acute Qualifiers: Heart failure type: systolic Qualified Code(s): I50.23 - Acute on chronic systolic (congestive) heart failure Comment: ef of 25%, severe concentric lvh (3) HTN (hypertension) Code(s): I10 - ESSENTIAL (PRIMARY) HYPERTENSION Status: Chronic Qualifiers: Hypertension type: essential hypertension Qualified Code(s): I10 - Essential (primary) hypertension (4) Chest pain Code(s): R07.9 - CHEST PAIN, UNSPECIFIED Status: Resolved Qualifiers: Ischemic chest pain type: stable angina pectoris (5) CAD (coronary artery disease) Code(s): I25.10 - ATHSCL HEART DISEASE OF [place] CORONARY ARTERY W/O ANG PCTRS Status: Chronic Qualifiers: Coronary Disease-Associated Artery/Lesion type: bypass graft [place] vs. transplanted heart: [place] heart Associated angina: with stable angina Qualified Code(s): I25.708 - Atherosclerosis of coronary artery bypass graft(s) , unspecified, with other forms of angina pectoris (6) Dyslipidemia Code(s): E78.5 - HYPERLIPIDEMIA, UNSPECIFIED Status: Chronic (7) Hypothyroidism Code(s): E03.9 - HYPOTHYROIDISM, UNSPECIFIED Status: Chronic Qualifiers: Hypothyroidism type: unspecified Qualified Code(s): E03.9 - Hypothyroidism , unspecified (8) DM type 2 (diabetes mellitus, type 2) Status: Chronic Qualifiers: Diabetes mellitus [place] insulin use: with custodial use Diabetes mellitus complication status: with unspecified complications Qualified Code(s) : E11.8 - Type 2 diabetes mellitus with unspecified complications; 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 Review of Systems - Medications/Allergies Allergies/Adverse Reactions: Allergies Allergy/AdvReac Type Severity Reaction Status Date / Time No Known Drug Allergies Allergy Verified 09/02/16 22:20 Medications: Current Medications Acetaminophen (Tylenol) 650 mg PO Q4H PRN PRN Reason: Headache/Fever/Mild Pain (1-3) Last Admin: 05/28/18 09:05 Dose: 650 mg Amiodarone HCl (Cordarone) 400 mg PO TID [facility] Last Admin: 05/28/18 09:00 Dose: 400 mg Aspirin (Aspirin Chewable) 81 mg PO DAILY [facility] Last Admin: 05/28/18 09:00 Dose: 81 mg Atorvastatin Calcium (Lipitor) 10 mg PO QPM [facility] Last Admin: 05/27/18 21:02 Dose: 10 mg Carvedilol (Coreg) 3.125 mg PO BID-[facility] Last Admin: 05/28/18 09:00 Dose: 3.125 mg Clopidogrel Bisulfate (Plavix) 75 mg PO DAILY [facility] Last Admin: 05/28/18 09:00 Dose: 75 mg Dextrose/Water (Dextrose 50%) 25 gm SLOW IVP PRN PRN PRN Reason: Hypoglycemia Ezetimibe (Zetia) 10 mg PO DAILY [facility] Last Admin: 05/28/18 09:01 Dose: 10 mg Famotidine (Pepcid) 20 mg PO QPM [facility] Last Admin: 05/27/18 21:02 Dose: 20 mg Fenofibrate (Tricor) 145 mg PO DAILY [facility] Last Admin: 05/28/18 09:00 Dose: 145 mg Glucagon (Glucagon) 1 mg IM PRN PRN PRN Reason: Hypoglycemia Guaifenesin/Dextromethorphan (Robitussin Dm) 15 ml PO Q4H PRN PRN Reason: Cough Dextrose/Water (D5w) 1,000 mls @ 0 mls/hr IV .Q0M PRN PRN Reason: Hypoglycemia Insulin Glargine 18 units/ (Miscellaneous Medication) 0.18 mls @ 0 mls/hr SC QAM [facility] Last Admin: 05/28/18 09:00 Dose: 0.18 mls Sodium Chloride (1/2 Normal Saline) 1,000 mls @ 75 mls/hr IV .[id number] [facility] Last Admin: 05/27/18 21:00 Dose: 1,000 mls Insulin Human Lispro (Humalog) 0 units SC .MODERATE SLIDING SC PRN PRN Reason: Moderate Correctional Scale Last Admin: 05/27/18 11:47 Dose: 8 unit Insulin Human Lispro (Humalog) 0 units SC .BEDTIME SLIDING SC PRN; Protocol PRN Reason: BEDTIME SLIDING SCALE Last Admin: 05/27/18 21:01 Dose: 2 unit Levothyroxine Sodium (Synthroid) 88 mcg PO 0600 [facility] Last Admin: 05/28/18 05:45 Dose: 88 mcg Rivaroxaban (Xarelto) 15 mg PO DAILY [facility] Last Admin: 05/28/18 09:00 Dose: 15 mg Senna/Docusate Sodium (Senokot S) 2 tab PO BIDPRN PRN PRN Reason: Constipation Sodium Chloride (Flush - Normal Saline) 10 ml IVF PRN PRN PRN Reason: Saline Flush Last Admin: 05/27/18 08:01 Dose: 10 ml Tramadol HCl (Ultram) 25 mg PO DAILY PRN PRN Reason: Mild Pain (1-3) Last Admin: 05/25/18 18:35 Dose: 25 mg
[2018-05-28] MEDS: Sodium Chloride 0.45% 1,000 ML IV SCH ×2 (11:47→20:48)
[2018-05-28] MEDS: traMADol HCl 50 MG TAB PO PRN (17:33)
[2018-05-28] MEDS: HumaLOG 300 UNITS/3 ML VIAL SC PRN ×2 (17:34→20:43)
[2018-05-28] MEDS: Atorvastatin Calcium 10 MG TAB PO SCH (20:45)
[2018-05-28] MEDS: Famotidine 20 MG TAB PO SCH (20:45)
--- NOTE | 2018-05-29 00:40 | PRG ---
DATE OF SERVICE: SUBJECTIVE: The patient seems to be doing much better. Noted with following vital signs. OBJECTIVE: VITAL SIGNS: Temperature 97.7, pulse 70, respiratory rate of 18, O2 saturation of 96% with a blood pressure 143/66. HEENT: Unremarkable. Moist oral mucosa. NECK: Supple. No conjunctival injection or icterus. CARDIOVASCULAR SYSTEM: First and second heart sounds were heard. RESPIRATORY SYSTEM: Clear to auscultation. DIGESTIVE SYSTEM: Benign abdomen with positive bowel sounds. EXTREMITIES: No peripheral edema. SKIN: No new gross rash. LABORATORY INVESTIGATION: Significant for creatinine that has gone down to 2.79. IMPRESSION: [id number] kidney disease, hemodynamically mediated, responded very well to supportive treatment. PLAN: 1. Continue the renal supportive measures for now. 2. Renally dose all medications and avoid potentially nephrotoxic agents. 3. Further management to be dependent on the clinical course. Job ID: [id number]
[2018-05-29 05:41] LABS: Albumin 2.7 g/dL (3.4-4.8); Anion Gap 9 mmol/L (10-20); BUN (Urea Nitrogen) 60 mg/dL (9.8-20.1); Calc. Creatinine Clearance 19 mL/min (70-130); Calcium 8.4 mg/dL (7.8-10.44); Carbon Dioxide 26 mmol/L (23-31); Chloride 107 mmol/L (98-107); Estimated GFR-MDRD 21; Glucose 94 mg/dL (83-110); Sodium 138 mmol/L (136-145)
[2018-05-29] MEDS: Levothyroxine Sodium 88 MCG TAB PO SCH (05:49)
[2018-05-29] MEDS: Insulin Glargine 18 UNITS in Pre-Filled Syringe 1 EACH SC SCH (08:41)
[2018-05-29] MEDS: Fenofibrate Nanocrystallized 145 MG TAB PO SCH (08:42)
[2018-05-29] MEDS: Amiodarone 200 MG TAB PO SCH ×3 (08:42→19:58)
[2018-05-29] MEDS: Ezetimibe 10 MG TAB PO SCH (08:42)
[2018-05-29] MEDS: Carvedilol 3.125 MG TAB PO SCH ×2 (08:42→18:03)
[2018-05-29] MEDS: Clopidogrel Bisulfate 75 MG TAB PO SCH (08:42)
[2018-05-29] MEDS: Rivaroxaban 10 MG TAB PO SCH (09:54)
--- NOTE | 2018-05-29 12:02 | PDOC.PN ---
- Subjective Encounter Start Date: 05/29/18 Encounter Start Time: 08:45 Subjective: no sob, slept well -: is amb in room - Objective Resuscitation Status - Order Detail: 05/24/18 19:20 Resuscitation Status Routine Resuscitation Status: FULL: Full Resuscitation MAR Reviewed: Yes Vital Signs & Weight: Vital Signs (12 hours) Temp Pulse Resp BP BP Pulse Ox 05/29/18 11:02 97.6 F 70 18 137/61 96 05/29/18 07:16 97.7 F 69 18 128/60 94 L 05/29/18 03:10 97.7 F 70 16 127/60 94 L Weight Weight 146 lb 8 oz I&O: 05/28/18 05/29/18 05/30/18 06:59 06:59 06:59 Intake Total 1520 Balance 1520 Result Diagrams: 05/25/18 05:09 05/29/18 04:48 Additional Labs: Accuchecks 05/29/18 05/29/18 05/28/18 10:28 05:33 20:41 POC Glucose 189 H 106 214 H 05/28/18 17:33 POC Glucose 265 H Phys Exam - Physical Examination HEENT: PERRLA, moist MMs Neck: no JVD, supple Respiratory: no wheezing, no rales Cardiovascular: RRR, no significant murmur Gastrointestinal: soft, non-tender, positive bowel sounds Musculoskeletal: no edema, pulses present Neurological: non-focal, moves all 4 limbs Dx/Plan (1) DOT (acute kidney injury) Code(s): N17.9 - ACUTE KIDNEY FAILURE, UNSPECIFIED Status: Acute (2) Acute exacerbation of CHF (congestive heart failure) Code(s): I50.9 - HEART FAILURE, UNSPECIFIED Status: Acute Qualifiers: Heart failure type: systolic Qualified Code(s): I50.23 - Acute on chronic systolic (congestive) heart failure Comment: ef of 25%, severe concentric lvh (3) HTN (hypertension) Code(s): I10 - ESSENTIAL (PRIMARY) HYPERTENSION Status: Chronic Qualifiers: Hypertension type: essential hypertension Qualified Code(s): I10 - Essential (primary) hypertension (4) Chest pain Code(s): R07.9 - CHEST PAIN, UNSPECIFIED Status: Resolved Qualifiers: Ischemic chest pain type: stable angina pectoris (5) CAD (coronary artery disease) Code(s): I25.10 - ATHSCL HEART DISEASE OF [place] CORONARY ARTERY W/O ANG PCTRS Status: Chronic Qualifiers: Coronary Disease-Associated Artery/Lesion type: bypass graft [place] vs. transplanted heart: [place] heart Associated angina: with stable angina Qualified Code(s): I25.708 - Atherosclerosis of coronary artery bypass graft(s) , unspecified, with other forms of angina pectoris Comment: last cath 01/2018 at [facility] patent grafts, prior echo 06/2015 ef of 75%, current ef of 25% (6) Dyslipidemia Code(s): E78.5 - HYPERLIPIDEMIA, UNSPECIFIED Status: Chronic (7) Hypothyroidism Code(s): E03.9 - HYPOTHYROIDISM, UNSPECIFIED Status: Chronic Qualifiers: Hypothyroidism type: unspecified Qualified Code(s): E03.9 - Hypothyroidism , unspecified (8) DM type 2 (diabetes mellitus, type 2) Status: Chronic Qualifiers: Diabetes mellitus prison insulin 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 spoke to daughter in law over phone, she or her will talk to about life vest/ROMEO. Review of Systems - Medications/Allergies Allergies/Adverse Reactions: Allergies Allergy/AdvReac Type Severity Reaction Status Date / Time No Known Drug Allergies Allergy Verified 09/02/16 22:20 Medications: Current Medications Acetaminophen (Tylenol) 650 mg PO Q4H PRN PRN Reason: Headache/Fever/Mild Pain (1-3) Last Admin: 05/28/18 09:05 Dose: 650 mg Amiodarone HCl (Cordarone) 400 mg PO TID [facility] Last Admin: 05/29/18 08:42 Dose: 400 mg Aspirin (Aspirin Chewable) 81 mg PO DAILY [facility] Last Admin: 05/29/18 08:42 Dose: 81 mg Atorvastatin Calcium (Lipitor) 10 mg PO QPM [facility] Last Admin: 05/28/18 20:45 Dose: 10 mg Carvedilol (Coreg) 3.125 mg PO BID-[facility] Last Admin: 05/29/18 08:42 Dose: 3.125 mg Clopidogrel Bisulfate (Plavix) 75 mg PO DAILY [facility] Last Admin: 05/29/18 08:42 Dose: 75 mg Dextrose/Water (Dextrose 50%) 25 gm SLOW IVP PRN PRN PRN Reason: Hypoglycemia Ezetimibe (Zetia) 10 mg PO DAILY [facility] Last Admin: 05/29/18 08:42 Dose: 10 mg Famotidine (Pepcid) 20 mg PO QPM [facility] Last Admin: 05/28/18 20:45 Dose: 20 mg Fenofibrate (Tricor) 145 mg PO DAILY [facility] Last Admin: 05/29/18 08:42 Dose: 145 mg Glucagon (Glucagon) 1 mg IM PRN PRN PRN Reason: Hypoglycemia Guaifenesin/Dextromethorphan (Robitussin Dm) 15 ml PO Q4H PRN PRN Reason: Cough Dextrose/Water (D5w) 1,000 mls @ 0 mls/hr IV .Q0M PRN PRN Reason: Hypoglycemia Insulin Glargine 18 units/ (Miscellaneous Medication) 0.18 mls @ 0 mls/hr SC QAM [facility] Last Admin: 05/29/18 08:41 Dose: 0.18 mls Insulin Human Lispro (Humalog) 0 units SC .MODERATE SLIDING SC PRN PRN Reason: Moderate Correctional Scale Last Admin: 05/28/18 17:34 Dose: 6 unit Insulin Human Lispro (Humalog) 0 units SC .BEDTIME SLIDING SC PRN; Protocol PRN Reason: BEDTIME SLIDING SCALE Last Admin: 05/28/18 20:43 Dose: 2 unit Levothyroxine Sodium (Synthroid) 88 mcg PO 0600 [facility] Last Admin: 05/29/18 05:49 Dose: 88 mcg Rivaroxaban (Xarelto) 15 mg PO DAILY [facility] Last Admin: 05/29/18 09:54 Dose: 15 mg Senna/Docusate Sodium (Senokot S) 2 tab PO BIDPRN PRN PRN Reason: Constipation Sodium Chloride (Flush - Normal Saline) 10 ml IVF PRN PRN PRN Reason: Saline Flush Last Admin: 05/27/18 08:01 Dose: 10 ml Tramadol HCl (Ultram) 25 mg PO DAILY PRN PRN Reason: Mild Pain (1-3) Last Admin: 05/28/18 17:33 Dose: 25 mg
[2018-05-29] MEDS: HumaLOG 300 UNITS/3 ML VIAL SC PRN ×2 (15:53→20:42)
[2018-05-29] MEDS: traMADol HCl 50 MG TAB PO PRN (18:43)
[2018-05-29] MEDS: Atorvastatin Calcium 10 MG TAB PO SCH (19:59)
[2018-05-29] MEDS: Famotidine 20 MG TAB PO SCH (19:59)
[2018-05-29] MEDS: Acetaminophen 325 MG TAB PO PRN (20:46)
--- NOTE | 2018-05-29 23:13 | PRG ---
DATE OF SERVICE: 05/29/2018 SUBJECTIVE: The patient was seen and examined. OBJECTIVE: VITAL SIGNS: Seems to be doing much better, noted with the following vital signs; afebrile, temperature 97.7, pulse 70, respiratory rate of 19, O2 saturations of 97%, blood pressure 133/63. HEENT: On admission unremarkable. CARDIOVASCULAR: First and second heart sounds were heard. RESPIRATORY: Clear to auscultation. DIGESTIVE SYSTEM: Revealed a benign abdomen. EXTREMITIES: No peripheral edema. SKIN: No new gross rash. LYMPHATICS: No peripheral lymphadenopathy. LABORATORY INVESTIGATIONS: Showed a creatinine of 2.19, BUN of 60. IMPRESSION: 1. [id number] kidney disease, which is much improved. PLAN: 1. Continue current renal supportive measures. 2. Further management to be dependent on the clinical course. Job ID: [id number]
--- NOTE | 2018-05-30 00:20 | CON ---
DATE OF CONSULTATION: This is a review of records from [facility]. In November 2012, she underwent cardiac catheterization. ALARCON to the LAD and saphenous vein graft to the right coronary artery were patent. There was an 80% circumflex lesion and PROMUS 3.0 x 32 mm stent was placed. Apparently in the past, she has had elevated liver function tests with statins. 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 In December 2017, she was complaining of chest discomfort, underwent repeat catheterization. 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 There was a 30% circumflex lesion. The circumflex stent was patent. The saphenous vein graft to the right PDA had 40% lesion and the ALARCON to LAD was patent. Throughout the records, I have never seen any mention of left ventricular function. However, there is also no mention that she had any type of cardiomyopathy. Job ID: [id number]
[2018-05-30] MEDS ORDERED: Furosemide 40 MG/4 ML VIAL ONE (03:36)
[2018-05-30] MEDS ORDERED: Nitroglycerin 2% Ointment 1 INCH/1 GM Packet ONE (03:43)
[2018-05-30] MEDS ORDERED: Morphine 4 MG/ML VIAL SLOW IVP SCH (04:00)
--- NOTE | 2018-05-30 04:05 | PDOC.EVN ---
Event Note - Event Note Event Note: paged by rn pt on respiratory distress, BP:225/100, cxr=chf, lasix,morphine, nitropaste, cpap, pt has improved, we will monitor, colleague to continue further management in am
[2018-05-30] MEDS ORDERED: Furosemide 40 MG/4 ML VIAL SLOW IVP SCH (05:00)
[2018-05-30] MEDS ORDERED: Nitroglycerin 2% Ointment 1 INCH/1 GM Packet TOP SCH (05:00)
[2018-05-30 05:17] LABS: Bilirubin Negative (Negative); Blood, Urine Negative (Negative); Clarity CLEAR (Clear); Glucose, Urine (Dipstick) Negative (Negative); Leukocyte Small (Negative); Nitrite Negative (Negative); Protein, Urine (Dipstick) Negative (Neg-Trace); Specific Gravity, Urine 1.009 (1.002-1.036); Urobilinogen 0.2 mg/dL (0.2-1.0)
[2018-05-30 05:20] LABS: Bacteria/HPF 2+ HPF (None Seen); Pathc Cast-AUWi Flag 0.87 (0-2.49); RBC/HPF 0-3 HPF (0-3)
[2018-05-30 05:49] LABS: Transitional Epithelial 0-3 HPF (0-3)
[2018-05-30 05:50] LABS: Oval Fat Bodies/HPF None Seen HPF (None Seen); Renal Epithelial None Seen HPF (0-3); Trichomonas/HPF None Seen HPF (None Seen); Yeast-All Forms None Seen HPF (None Seen)
[2018-05-30 05:52] LABS: Hyaline Casts/LPF 0-3 HYALINE CAST LPF (0-3 Hyaline)
[2018-05-30 05:53] LABS: Crystals/HPF None Seen HPF (Negative)
[2018-05-30 05:58] LABS: Anion Gap 12 mmol/L (10-20); BUN (Urea Nitrogen) 55 mg/dL (9.8-20.1); BUN/Creatinine Ratio 25.23; Calc. Creatinine Clearance 19 mL/min (70-130); Calcium 8.6 mg/dL (7.8-10.44); Carbon Dioxide 25 mmol/L (23-31); Cardiac Risk 2.4 (Less than 4.5); Chloride 103 mmol/L (98-107); Cholesterol 64 mg/dl (< 200 Desired); Estimated GFR-MDRD 21; Glucose 181 mg/dL (83-110); HDL Cholesterol 27 mg/dL (>60 Neg Risk); LDL Cholesterol, Calculated 27 mg/dL; Phosphorus 2.7 mg/dL (2.3-4.7); Potassium 4.1 mmol/L (3.5-5.1); Sodium 136 mmol/L (136-145); Triglycerides 48 mg/dL (Less than 150)
[2018-05-30] MEDS: Levothyroxine Sodium 88 MCG TAB PO SCH (06:06)
[2018-05-30] MEDS: Clopidogrel Bisulfate 75 MG TAB PO SCH (08:46)
[2018-05-30] MEDS: Rivaroxaban 10 MG TAB PO SCH (08:46)
[2018-05-30] MEDS: Fenofibrate Nanocrystallized 145 MG TAB PO SCH (08:47)
[2018-05-30] MEDS: Acetaminophen 325 MG TAB PO PRN (08:47)
[2018-05-30] MEDS: Ezetimibe 10 MG TAB PO SCH (08:47)
[2018-05-30] MEDS: Amiodarone 200 MG TAB PO SCH ×3 (08:47→21:26)
[2018-05-30] MEDS: Insulin Glargine 18 UNITS in Pre-Filled Syringe 1 EACH SC SCH (08:48)
--- NOTE | 2018-05-30 09:01 | RAD ---
AP VIEW CHEST: Date: 05/30/18 HISTORY: Sudden onset shortness of breath. FINDINGS: Comparison made to previous exam from 05/24/18. AP view of chest demonstrates cardiomegaly. Sternotomy wires seen. Dual lead intracardiac pacing stanley ce seen. EKG leads seen over the chest. Pulmonary vascular congestion seen. No evidence of effusions, pneumoni a, or pneumothorax seen. IMPRESSION: Cardiomegaly and pulmonary vascular congestion. POS: [facility]
[2018-05-30] MEDS ORDERED: Carvedilol 6.25 MG TAB PO SCH (10:15)
[2018-05-30] MEDS: Carvedilol 3.125 MG TAB PO SCH ×2 (10:57→17:08)
[2018-05-30] MEDS ORDERED: Amlodipine 10 MG TAB PO SCH (12:00)
[2018-05-30] MEDS: HumaLOG 300 UNITS/3 ML VIAL SC PRN ×2 (13:15→17:13)
--- NOTE | 2018-05-30 17:34 | PDOC.PN ---
- Subjective Encounter Start Date: 05/30/18 Encounter Start Time: 10:30 Subjective: pt up in bed no complains - Objective Resuscitation Status - Order Detail: 05/24/18 19:20 Resuscitation Status Routine Resuscitation Status: FULL: Full Resuscitation Vital Signs & Weight: Vital Signs (12 hours) Temp Pulse Pulse Pulse Resp BP BP 05/30/18 15:36 98.9 F 70 18 05/30/18 14:06 70 05/30/18 12:52 97.9 F 70 18 05/30/18 11:49 70 70 119/58 L 99/48 L 05/30/18 07:29 98.9 F 68 17 05/30/18 07:25 BP Pulse Ox Pulse Ox Pulse Ox 05/30/18 15:36 125/56 L 98 05/30/18 14:06 05/30/18 12:52 110/54 L 100 05/30/18 11:49 100 96 05/30/18 07:29 163/66 H 97 05/30/18 07:25 97 Weight Weight 148 lb 8 oz I&O: 05/29/18 05/30/18 05/31/18 06:59 06:59 06:59 Intake Total 1440 Output Total 1100 Balance 340 Result Diagrams: 05/25/18 05:09 05/30/18 04:55 Additional Labs: Accuchecks 05/30/18 05/30/18 05/30/18 16:57 10:55 05:45 POC Glucose 218 H 214 H 175 H 05/29/18 20:25 POC Glucose 253 H Phys Exam - Physical Examination Neck: no nodes, no JVD, supple, full ROM Respiratory: no wheezing, no rales, no rhonchi, wheezing present, clear to auscultation bilateral Cardiovascular: RRR, no significant murmur, no rub, gallop, irregular Gastrointestinal: soft, non-tender, no distention, positive bowel sounds Dx/Plan (1) Acute exacerbation of CHF (congestive heart failure) Code(s): I50.9 - HEART FAILURE, UNSPECIFIED Status: Acute Qualifiers: Heart failure type: systolic Qualified Code(s): I50.23 - Acute on chronic systolic (congestive) heart failure Comment: ef of 25%, severe concentric lvh (2) DM type 2 (diabetes mellitus, type 2) Status: Chronic Qualifiers: Diabetes mellitus shelter insulin use: with intermodal truck driver use Diabetes mellitus complication status: with unspecified complications Qualified Code(s) : E11.8 - Type 2 diabetes mellitus with unspecified complications; Z79.4 - exterminator helper (current) use of insulin (3) DOT (acute kidney injury) Code(s): N17.9 - ACUTE KIDNEY FAILURE, UNSPECIFIED Status: Acute (4) CAD (coronary artery disease) Code(s): I25.10 - ATHSCL HEART DISEASE OF [place] CORONARY ARTERY W/O ANG PCTRS Status: Chronic Qualifiers: Coronary Disease-Associated Artery/Lesion type: bypass graft [place] vs. transplanted heart: [place] heart Associated angina: with stable angina Qualified Code(s): I25.708 - Atherosclerosis of coronary artery bypass graft(s) , unspecified, with other forms of angina pectoris Comment: last cath 01/2018 at [facility] patent grafts, prior echo 06/2015 ef of 75%, current ef of 25% (5) HTN (hypertension) Code(s): I10 - ESSENTIAL (PRIMARY) HYPERTENSION Status: Chronic Qualifiers: Hypertension type: essential hypertension Qualified Code(s): I10 - Essential (primary) hypertension (6) Afib Code(s): I48.91 - UNSPECIFIED ATRIAL FIBRILLATION Status: Acute - Plan will increase her coreg -: will add lasix -: will continue xarelto * . Review of Systems - Review of Systems Respiratory: negative: Cough, Dry, Shortness of Breath, Hemoptysis, SOB with Excertion, Pleuritic Pain, Sputum, Wheezing Cardiovascular: negative: chest pain, palpitations, orthopnea, paroxysmal nocturnal dyspnea, edema, light headedness, other Gastrointestinal: negative: Nausea, Vomiting, Abdominal Pain, Diarrhea, Constipation, Melena, Hematochezia, Other Genitourinary: negative: Dysuria, Frequency, Incontinence, Hematuria, Retention , Other - Medications/Allergies Allergies/Adverse Reactions: Allergies Allergy/AdvReac Type Severity Reaction Status Date / Time No Known Drug Allergies Allergy Verified 09/02/16 22:20 Medications: Current Medications Acetaminophen (Tylenol) 650 mg PO Q4H PRN PRN Reason: Headache/Fever/Mild Pain (1-3) Last Admin: 05/30/18 08:47 Dose: 650 mg Amiodarone HCl (Cordarone) 400 mg PO TID [facility] Last Admin: 05/30/18 15:37 Dose: 400 mg Amlodipine Besylate (Norvasc) 10 mg PO DAILY [facility] Aspirin (Aspirin Chewable) 81 mg PO DAILY [facility] Last Admin: 05/30/18 08:47 Dose: 81 mg Atorvastatin Calcium (Lipitor) 10 mg PO QPM [facility] Last Admin: 05/29/18 19:59 Dose: 10 mg Carvedilol (Coreg) 12.5 mg PO BID[facility] Last Admin: 05/30/18 17:08 Dose: 12.5 mg Clopidogrel Bisulfate (Plavix) 75 mg PO DAILY [facility] Last Admin: 05/30/18 08:46 Dose: 75 mg Dextrose/Water (Dextrose 50%) 25 gm SLOW IVP PRN PRN PRN Reason: Hypoglycemia Ezetimibe (Zetia) 10 mg PO DAILY [facility] Last Admin: 05/30/18 08:47 Dose: 10 mg Famotidine (Pepcid) 20 mg PO QPM [facility] Last Admin: 05/29/18 19:59 Dose: 20 mg Fenofibrate (Tricor) 145 mg PO DAILY [facility] Last Admin: 05/30/18 08:47 Dose: 145 mg Glucagon (Glucagon) 1 mg IM PRN PRN PRN Reason: Hypoglycemia Guaifenesin/Dextromethorphan (Robitussin Dm) 15 ml PO Q4H PRN PRN Reason: Cough Dextrose/Water (D5w) 1,000 mls @ 0 mls/hr IV .Q0M PRN PRN Reason: Hypoglycemia Insulin Glargine 18 units/ (Miscellaneous Medication) 0.18 mls @ 0 mls/hr SC QAM [facility] Last Admin: 05/30/18 08:48 Dose: 0.18 mls Insulin Human Lispro (Humalog) 0 units SC .MODERATE SLIDING SC PRN PRN Reason: Moderate Correctional Scale Last Admin: 05/30/18 17:13 Dose: 4 unit Insulin Human Lispro (Humalog) 0 units SC .BEDTIME SLIDING SC PRN; Protocol PRN Reason: BEDTIME SLIDING SCALE Last Admin: 05/29/18 20:42 Dose: 3 unit Levothyroxine Sodium (Synthroid) 88 mcg PO 0600 [facility] Last Admin: 05/30/18 06:06 Dose: 88 mcg Rivaroxaban (Xarelto) 15 mg PO DAILY [facility] Last Admin: 05/30/18 08:46 Dose: 15 mg Senna/Docusate Sodium (Senokot S) 2 tab PO BIDPRN PRN PRN Reason: Constipation Sodium Chloride (Flush - Normal Saline) 10 ml IVF PRN PRN PRN Reason: Saline Flush Last Admin: 05/29/18 19:59 Dose: 10 ml Tramadol HCl (Ultram) 25 mg PO DAILY PRN PRN Reason: Mild Pain (1-3) Last Admin: 05/29/18 18:43 Dose: 25 mg
[2018-05-30] MEDS: Atorvastatin Calcium 10 MG TAB PO SCH (21:25)
[2018-05-30] MEDS: Famotidine 20 MG TAB PO SCH (21:26)
[2018-05-31 05:27] LABS: Albumin 2.6 g/dL (3.4-4.8); Anion Gap 10 mmol/L (10-20); BUN (Urea Nitrogen) 55 mg/dL (9.8-20.1); Calc. Creatinine Clearance 18 mL/min (70-130); Calcium 8.5 mg/dL (7.8-10.44); Carbon Dioxide 28 mmol/L (23-31); Chloride 105 mmol/L (98-107); Estimated GFR-MDRD 20; Glucose 73 mg/dL (83-110); Phosphorus 2.6 mg/dL (2.3-4.7); Sodium 139 mmol/L (136-145)
[2018-05-31] MEDS: Levothyroxine Sodium 88 MCG TAB PO SCH (05:51)
[2018-05-31] MEDS ORDERED: Amlodipine 10 MG TAB PO SCH (09:00)
[2018-05-31] MEDS ORDERED: Furosemide 20 MG TAB PO SCH (09:00)
[2018-05-31] MEDS ORDERED: PROPOFOL 20 ML ONE (09:59)
[2018-05-31] MEDS ORDERED: Carvedilol 6.25 MG TAB PO SCH (10:00)
[2018-05-31] MEDS: Amiodarone 200 MG TAB PO SCH ×3 (11:33→21:21)
[2018-05-31] MEDS: Clopidogrel Bisulfate 75 MG TAB PO SCH (11:34)
[2018-05-31] MEDS: Fenofibrate Nanocrystallized 145 MG TAB PO SCH (11:34)
[2018-05-31] MEDS: Ezetimibe 10 MG TAB PO SCH (11:35)
[2018-05-31] MEDS: Rivaroxaban 10 MG TAB PO SCH (11:40)
[2018-05-31] MEDS: Carvedilol 3.125 MG TAB PO SCH (11:42)
[2018-05-31] MEDS: Insulin Glargine 18 UNITS in Pre-Filled Syringe 1 EACH SC SCH (11:43)
[2018-05-31] MEDS: traMADol HCl 50 MG TAB PO PRN (12:48)
--- NOTE | 2018-05-31 14:10 | PDOC.PN ---
- Subjective Encounter Start Date: 05/31/18 Encounter Start Time: 14:00 Subjective: pt up in bed, came back from cardioversion - Objective Resuscitation Status - Order Detail: 05/24/18 19:20 Resuscitation Status Routine Resuscitation Status: FULL: Full Resuscitation Vital Signs & Weight: Vital Signs (12 hours) Temp Pulse Resp BP BP Pulse Ox 05/31/18 08:40 95 05/31/18 07:37 98.7 F 70 18 130/60 95 05/31/18 04:35 96 05/31/18 02:55 98 F 72 18 112/75 96 Weight Weight 147 lb 12.8 oz I&O: 05/30/18 05/31/18 06/01/18 06:59 06:59 06:59 Intake Total 1440 1150 Output Total 1100 1225 Balance 340 -75 Result Diagrams: 05/25/18 05:09 05/31/18 04:50 Additional Labs: Accuchecks 05/31/18 05/31/18 05/30/18 11:29 05:34 20:43 POC Glucose 87 82 181 H 05/30/18 16:57 POC Glucose 218 H Phys Exam - Physical Examination Neck: no nodes, no JVD, supple, full ROM Respiratory: no wheezing, no rales, no rhonchi, wheezing present, clear to auscultation bilateral Cardiovascular: RRR, no significant murmur, no rub, gallop, irregular Gastrointestinal: soft, non-tender, no distention, positive bowel sounds Musculoskeletal: no edema, pulses present, edema present Dx/Plan (1) Acute exacerbation of CHF (congestive heart failure) Code(s): I50.9 - HEART FAILURE, UNSPECIFIED Status: Acute Qualifiers: Heart failure type: systolic Qualified Code(s): I50.23 - Acute on chronic systolic (congestive) heart failure Comment: ef of 25%, severe concentric lvh (2) DM type 2 (diabetes mellitus, type 2) Status: Chronic Qualifiers: Diabetes mellitus extermination supervisor insulin use: with custodial use Diabetes mellitus complication status: with unspecified complications Qualified Code(s) : E11.8 - Type 2 diabetes mellitus with unspecified complications; Z79.4 - nursing home (current) use of insulin (3) DOT (acute kidney injury) Code(s): N17.9 - ACUTE KIDNEY FAILURE, UNSPECIFIED Status: Acute (4) CAD (coronary artery disease) Code(s): I25.10 - ATHSCL HEART DISEASE OF [place] CORONARY ARTERY W/O ANG PCTRS Status: Chronic Qualifiers: Coronary Disease-Associated Artery/Lesion type: bypass graft [place] vs. transplanted heart: [place] heart Associated angina: with stable angina Qualified Code(s): I25.708 - Atherosclerosis of coronary artery bypass graft(s) , unspecified, with other forms of angina pectoris Comment: last cath 01/2018 at [facility] patent grafts, prior echo 06/2015 ef of 75%, current ef of 25% (5) HTN (hypertension) Code(s): I10 - ESSENTIAL (PRIMARY) HYPERTENSION Status: Chronic Qualifiers: Hypertension type: essential hypertension Qualified Code(s): I10 - Essential (primary) hypertension (6) Afib Code(s): I48.91 - UNSPECIFIED ATRIAL FIBRILLATION Status: Acute - Plan s/p cardioversion. will discontinue novasc and lower her dose of -: coreg. will order labs in am -: monitor creatinine, once stable will add JOANNE * . Review of Systems - Review of Systems Cardiovascular: negative: chest pain, palpitations, orthopnea, paroxysmal nocturnal dyspnea, edema, light headedness, other Gastrointestinal: negative: Nausea, Vomiting, Abdominal Pain, Diarrhea, Constipation, Melena, Hematochezia, Other Genitourinary: negative: Dysuria, Frequency, Incontinence, Hematuria, Retention , Other - Medications/Allergies Allergies/Adverse Reactions: Allergies Allergy/AdvReac Type Severity Reaction Status Date / Time No Known Drug Allergies Allergy Verified 09/02/16 22:20 Medications: Current Medications Acetaminophen (Tylenol) 650 mg PO Q4H PRN PRN Reason: Headache/Fever/Mild Pain (1-3) Last Admin: 05/30/18 08:47 Dose: 650 mg Amiodarone HCl (Cordarone) 400 mg PO TID [facility] Last Admin: 05/31/18 11:33 Dose: 400 mg Aspirin (Aspirin Chewable) 81 mg PO DAILY [facility] Last Admin: 05/31/18 11:34 Dose: 81 mg Atorvastatin Calcium (Lipitor) 10 mg PO QPM [facility] Last Admin: 05/30/18 21:25 Dose: 10 mg Carvedilol (Coreg) 6.25 mg PO BID[facility] Clopidogrel Bisulfate (Plavix) 75 mg PO DAILY [facility] Last Admin: 05/31/18 11:34 Dose: 75 mg Dextrose/Water (Dextrose 50%) 25 gm SLOW IVP PRN PRN PRN Reason: Hypoglycemia Ezetimibe (Zetia) 10 mg PO DAILY [facility] Last Admin: 05/31/18 11:35 Dose: 10 mg Famotidine (Pepcid) 20 mg PO QPM [facility] Last Admin: 05/30/18 21:26 Dose: 20 mg Fenofibrate (Tricor) 145 mg PO DAILY [facility] Last Admin: 05/31/18 11:34 Dose: 145 mg Furosemide (Lasix) 20 mg PO DAILY [facility] Last Admin: 05/31/18 11:34 Dose: 20 mg Glucagon (Glucagon) 1 mg IM PRN PRN PRN Reason: Hypoglycemia Guaifenesin/Dextromethorphan (Robitussin Dm) 15 ml PO Q4H PRN PRN Reason: Cough Dextrose/Water (D5w) 1,000 mls @ 0 mls/hr IV .Q0M PRN PRN Reason: Hypoglycemia Insulin Glargine 18 units/ (Miscellaneous Medication) 0.18 mls @ 0 mls/hr SC QAM [facility] Last Admin: 05/31/18 11:43 Dose: 0.18 mls Insulin Human Lispro (Humalog) 0 units SC .MODERATE SLIDING SC PRN PRN Reason: Moderate Correctional Scale Last Admin: 05/30/18 17:13 Dose: 4 unit Insulin Human Lispro (Humalog) 0 units SC .BEDTIME SLIDING SC PRN; Protocol PRN Reason: BEDTIME SLIDING SCALE Last Admin: 05/29/18 20:42 Dose: 3 unit Levothyroxine Sodium (Synthroid) 88 mcg PO 0600 [facility] Last Admin: 05/31/18 05:51 Dose: 88 mcg Rivaroxaban (Xarelto) 15 mg PO DAILY [facility] Last Admin: 05/31/18 11:40 Dose: 15 mg Senna/Docusate Sodium (Senokot S) 2 tab PO BIDPRN PRN PRN Reason: Constipation Sodium Chloride (Flush - Normal Saline) 10 ml IVF PRN PRN PRN Reason: Saline Flush Last Admin: 05/30/18 21:26 Dose: 10 ml Tramadol HCl (Ultram) 25 mg PO DAILY PRN PRN Reason: Mild Pain (1-3) Last Admin: 05/31/18 12:48 Dose: 25 mg
[2018-05-31] MEDS ORDERED: PROPOFOL 200 MG/20 ML VIAL ONE (16:14)
[2018-05-31] MEDS: Carvedilol 6.25 MG TAB PO SCH (16:33)
--- NOTE | 2018-05-31 16:57 | ECHO ---
TRANSESOPHAGEAL ECHOCARDIOGRAM: DATE OF PROCEDURE: 05/31/18 INDICATION: 88-year-old woman with paroxysmal atrial fibrillation. DESCRIPTION OF PROCEDURE: The patient was taken to the PACU. The patient was sedated by anesthesiology. A transesophageal probe was placed in the distal esophagus and stomach. Echocardiographic images were obtained. The transesophageal probe was removed. FINDINGS: 1. Severe decrease in left ventricular systolic function. 2. Left atrial enlargement. 3. Left ventricle dilated. 4. Moderate mitral regurgitation. 5. Mild tricuspid regurgitation. 6. Defibrillator wire noted in right ventricle. 7. Spontaneous contrast noted in left atrium and left atrial appendage. 8. No formed thrombus in the left atrium or left atrial appendage. 9. Atherosclerotic debris in the descending aorta. IMPRESSION: No formed thrombus in the left atrium or left atrial appendage.
--- NOTE | 2018-05-31 17:01 | OP ---
CARDIOLOGY PROCEDURE NOTE: Date: 05/31/18 INDICATION: Atrial fibrillation. PROCEDURE: Electrical cardioversion. PROCEDURE DETAILS: The patient remained sedated after undergoing transesophageal echo. With 200 joules, she remained V-p aced for 4-5 seconds but then converted to atrial pacing and ventricular pacing. The AV interval was increased and she was A-paced and V-sensed.
--- NOTE | 2018-05-31 18:20 | PRG ---
DATE OF SERVICE: 05/31/2018 SUBJECTIVE: The patient was seen and examined. Seems to be doing much better. Noted with the following vital signs. OBJECTIVE: VITAL SIGNS: Afebrile, temperature 98.9, pulse 70, respiratory rate of 18, O2 saturations of 94%, and blood pressure 138/62. HEENT: Unremarkable. CARDIOVASCULAR SYSTEM: First and second sounds were heard. RESPIRATORY SYSTEM: Clear to auscultation. DIGESTIVE SYSTEM: Revealed a benign abdomen with positive bowel sounds. EXTREMITIES: No peripheral edema. SKIN: No new gross rash. LYMPHATICS: No peripheral lymphadenopathy. LABORATORY INVESTIGATION: Showed albumin of 2.6, creatinine 2.34 with BUN of 55. IMPRESSION: 1. Acute on chronic kidney disease, which is much improved. 2. Hypoalbuminemia. PLAN: 1. We will continue with current renal supportive measures. 2. Further management will be dependent on the clinical course. Job ID: [id number]
--- NOTE | 2018-05-31 20:54 | EKG ---
Test Reason : STAT Blood Pressure : / mmHG Vent. Rate : 070 BPM Atrial Rate : 071 BPM P-R Int : 000 ms QRS Dur : 180 ms QT Int : 486 ms P-R-T Axes : 000 -68 042 degrees QTc Int : 524 ms Ventricular-paced rhythm Abnormal ECG When compared with ECG of 24-MAY-2018 15:36, (Unconfirmed) Electronic ventricular pacemaker has replaced Atrial fibrillation Confirmed by Alfie MEJIA ([id number]) on 05/31/2018 8:54:12 PM Referred By: CARLOTTA Confirmed By:Alfie MEJIA
[2018-05-31] MEDS: Famotidine 20 MG TAB PO SCH (21:21)
[2018-05-31] MEDS: Atorvastatin Calcium 10 MG TAB PO SCH (21:21)
[2018-05-31] MEDS: HumaLOG 300 UNITS/3 ML VIAL SC PRN (21:24)
[2018-06-01 05:07] LABS: #Lymphocytes 1.3 thou/uL (1.20-3.40); #Monocytes 0.6 thou/uL (0.11-0.59); #Neutrophils 2.6 thou/uL (1.40-6.50); %Basophils 0.6 % (0.0-1.0); %Lymphocytes 28.3 % (21.0-51.0); %Monocytes 12.4 % (0.0-10.0); %Neutrophils 57.7 % (42.0-75.0); Hemoglobin 8.9 g/dL (12.0-16.0); Mean Corpuscular HGB CONC 32.9 g/dL (32.0-36.0); Mean Corpuscular Hemoglobin 33.2 pg (27.0-31.0); Mean Platelet Volume 8.9 fL (7.4-10.4); Platelet Count 148 thou/uL (130-400); RBC Distribution Width 12.4 % (11.5-14.5); Red Blood Cell (RBC) Count 2.67 mill/uL (4.20-5.40); White Blood Cell (WBC) Count 4.6 thou/uL (4.8-10.8)
[2018-06-01] MEDS: Levothyroxine Sodium 88 MCG TAB PO SCH (05:12)
[2018-06-01 05:22] LABS: Albumin 2.8 g/dL (3.4-4.8); Anion Gap 13 mmol/L (10-20); BUN (Urea Nitrogen) 58 mg/dL (9.8-20.1); BUN/Creatinine Ratio 22.57; Calc. Creatinine Clearance 16 mL/min (70-130); Calcium 8.7 mg/dL (7.8-10.44); Carbon Dioxide 25 mmol/L (23-31); Chloride 104 mmol/L (98-107); Estimated GFR-MDRD 18; Glucose 75 mg/dL (83-110); Phosphorus 3.1 mg/dL (2.3-4.7); Potassium 3.9 mmol/L (3.5-5.1); Sodium 138 mmol/L (136-145)
[2018-06-01] MEDS: traMADol HCl 50 MG TAB PO PRN (06:36)
[2018-06-01] MEDS: Amiodarone 200 MG TAB PO SCH ×3 (08:52→21:31)
[2018-06-01] MEDS: Carvedilol 6.25 MG TAB PO SCH ×2 (08:52→17:00)
[2018-06-01] MEDS: Fenofibrate Nanocrystallized 145 MG TAB PO SCH (08:53)
[2018-06-01] MEDS: Ezetimibe 10 MG TAB PO SCH (08:53)
[2018-06-01] MEDS: Rivaroxaban 10 MG TAB PO SCH (08:53)
[2018-06-01] MEDS: Clopidogrel Bisulfate 75 MG TAB PO SCH (08:54)
[2018-06-01] MEDS: Insulin Glargine 18 UNITS in Pre-Filled Syringe 1 EACH SC SCH (08:55)
[2018-06-01] MEDS ORDERED: Albumin 25% 25 GM/100 ML BOT IVPB SCH (11:31)
--- NOTE | 2018-06-01 11:33 | PDOC.PN ---
- Subjective Encounter Start Date: 06/01/18 Encounter Start Time: 10:00 Subjective: pt up in bed no complains - Objective Resuscitation Status - Order Detail: 05/24/18 19:20 Resuscitation Status Routine Resuscitation Status: FULL: Full Resuscitation Vital Signs & Weight: Vital Signs (12 hours) Temp Pulse Pulse Pulse Resp BP BP 06/01/18 10:24 78 70 129/59 L 133/61 06/01/18 07:46 97.6 F 70 18 06/01/18 04:00 98.2 F 70 18 06/01/18 00:00 98.1 F 70 18 BP BP Pulse Ox Pulse Ox Pulse Ox 06/01/18 10:24 93 L 97 06/01/18 07:46 167/72 H 97 06/01/18 04:00 125/61 96 06/01/18 00:00 121/60 98 Weight Weight 144 lb 14.4 oz I&O: 05/31/18 06/01/18 06/02/18 06:59 06:59 06:59 Intake Total 1150 1685 Output Total 1225 850 Balance -75 835 Result Diagrams: 06/01/18 04:37 06/01/18 04:37 Additional Labs: Accuchecks 06/01/18 05/31/18 05/31/18 05:25 21:12 16:45 POC Glucose 85 273 H 186 H 05/31/18 11:29 POC Glucose 87 Phys Exam - Physical Examination Neck: no nodes, no JVD, supple, full ROM Respiratory: no wheezing, no rales, no rhonchi, wheezing present, clear to auscultation bilateral Cardiovascular: RRR, no significant murmur, no rub, gallop, irregular Gastrointestinal: soft, non-tender, no distention, positive bowel sounds Dx/Plan (1) Acute exacerbation of CHF (congestive heart failure) Code(s): I50.9 - HEART FAILURE, UNSPECIFIED Status: Acute Qualifiers: Heart failure type: systolic Qualified Code(s): I50.23 - Acute on chronic systolic (congestive) heart failure Comment: ef of 25%, severe concentric lvh (2) DM type 2 (diabetes mellitus, type 2) Status: Chronic Qualifiers: Diabetes mellitus buttermaker continuous churn insulin use: with buttermaker continuous churn use Diabetes mellitus complication status: with unspecified complications Qualified Code(s) : E11.8 - Type 2 diabetes mellitus with unspecified complications; Z79.4 - oysterman (current) use of insulin (3) DOT (acute kidney injury) Code(s): N17.9 - ACUTE KIDNEY FAILURE, UNSPECIFIED Status: Acute (4) CAD (coronary artery disease) Code(s): I25.10 - ATHSCL HEART DISEASE OF [place] CORONARY ARTERY W/O ANG PCTRS Status: Chronic Qualifiers: Coronary Disease-Associated Artery/Lesion type: bypass graft [place] vs. transplanted heart: [place] heart Associated angina: with stable angina Qualified Code(s): I25.708 - Atherosclerosis of coronary artery bypass graft(s) , unspecified, with other forms of angina pectoris Comment: last cath 01/2018 at [facility] patent grafts, prior echo 06/2015 ef of 75%, current ef of 25% (5) HTN (hypertension) Code(s): I10 - ESSENTIAL (PRIMARY) HYPERTENSION Status: Chronic Qualifiers: Hypertension type: essential hypertension Qualified Code(s): I10 - Essential (primary) hypertension (6) Afib Code(s): I48.91 - UNSPECIFIED ATRIAL FIBRILLATION Status: Acute - Plan worsening of creatinine today -: pt not on any nephrotoxins -: will discontinue carcamo today -: pt ambulation with assistance. possible discharge if ok with cards and joan * . Review of Systems - Review of Systems Cardiovascular: negative: chest pain, palpitations, orthopnea, paroxysmal nocturnal dyspnea, edema, light headedness, other Gastrointestinal: negative: Nausea, Vomiting, Abdominal Pain, Diarrhea, Constipation, Melena, Hematochezia, Other Genitourinary: negative: Dysuria, Frequency, Incontinence, Hematuria, Retention , Other - Medications/Allergies Allergies/Adverse Reactions: Allergies Allergy/AdvReac Type Severity Reaction Status Date / Time No Known Drug Allergies Allergy Verified 09/02/16 22:20 Medications: Current Medications Acetaminophen (Tylenol) 650 mg PO Q4H PRN PRN Reason: Headache/Fever/Mild Pain (1-3) Last Admin: 05/30/18 08:47 Dose: 650 mg Albumin Human (Albumin 25%) 25 gm IVPB ONE ONE Stop: 06/01/18 11:32 Amiodarone HCl (Cordarone) 400 mg PO TID [facility] Last Admin: 06/01/18 08:52 Dose: 400 mg Aspirin (Aspirin Chewable) 81 mg PO DAILY [facility] Last Admin: 06/01/18 08:52 Dose: 81 mg Atorvastatin Calcium (Lipitor) 10 mg PO QPM [facility] Last Admin: 05/31/18 21:21 Dose: 10 mg Carvedilol (Coreg) 6.25 mg PO BID-[facility] Last Admin: 06/01/18 08:52 Dose: 6.25 mg Clopidogrel Bisulfate (Plavix) 75 mg PO DAILY [facility] Last Admin: 06/01/18 08:54 Dose: 75 mg Dextrose/Water (Dextrose 50%) 25 gm SLOW IVP PRN PRN PRN Reason: Hypoglycemia Ezetimibe (Zetia) 10 mg PO DAILY [facility] Last Admin: 06/01/18 08:53 Dose: 10 mg Famotidine (Pepcid) 20 mg PO QPM [facility] Last Admin: 05/31/18 21:21 Dose: 20 mg Fenofibrate (Tricor) 145 mg PO DAILY [facility] Last Admin: 06/01/18 08:53 Dose: 145 mg Glucagon (Glucagon) 1 mg IM PRN PRN PRN Reason: Hypoglycemia Guaifenesin/Dextromethorphan (Robitussin Dm) 15 ml PO Q4H PRN PRN Reason: Cough Dextrose/Water (D5w) 1,000 mls @ 0 mls/hr IV .Q0M PRN PRN Reason: Hypoglycemia Insulin Glargine 18 units/ (Miscellaneous Medication) 0.18 mls @ 0 mls/hr SC QAM [facility] Last Admin: 06/01/18 08:55 Dose: Not Given Insulin Human Lispro (Humalog) 0 units SC .MODERATE SLIDING SC PRN PRN Reason: Moderate Correctional Scale Last Admin: 05/30/18 17:13 Dose: 4 unit Insulin Human Lispro (Humalog) 0 units SC .BEDTIME SLIDING SC PRN; Protocol PRN Reason: BEDTIME SLIDING SCALE Last Admin: 05/31/18 21:24 Dose: 3 unit Levothyroxine Sodium (Synthroid) 88 mcg PO 0600 [facility] Last Admin: 06/01/18 05:12 Dose: 88 mcg Rivaroxaban (Xarelto) 15 mg PO DAILY [facility] Last Admin: 06/01/18 08:53 Dose: 15 mg Senna/Docusate Sodium (Senokot S) 2 tab PO BIDPRN PRN PRN Reason: Constipation Sodium Chloride (Flush - Normal Saline) 10 ml IVF PRN PRN PRN Reason: Saline Flush Last Admin: 05/30/18 21:26 Dose: 10 ml Tramadol HCl (Ultram) 25 mg PO DAILY PRN PRN Reason: Mild Pain (1-3) Last Admin: 06/01/18 06:36 Dose: 25 mg
[2018-06-01] MEDS: HumaLOG 300 UNITS/3 ML VIAL SC PRN ×3 (11:40→21:31)
--- NOTE | 2018-06-01 13:04 | EKG ---
Test Reason : CHEST PAIN Blood Pressure : / mmHG Vent. Rate : 083 BPM Atrial Rate : 078 BPM P-R Int : 000 ms QRS Dur : 124 ms QT Int : 402 ms P-R-T Axes : 000 -03 142 degrees QTc Int : 472 ms Atrial fibrillation Non-specific intra-ventricular conduction delay Nonspecific ST and T wave abnormality , probably digitalis effect Abnormal ECG Inferior-lateral ischemia pattern Confirmed by BARB OLVERA ([id number]), editor farm journal NEERU CARTER ([id number]) on 06/01/2018 1:03:31 PM Referred By: Confirmed By:BARB OLVERA
[2018-06-01] MEDS: Famotidine 20 MG TAB PO SCH (21:31)
[2018-06-01] MEDS: Atorvastatin Calcium 10 MG TAB PO SCH (21:31)
--- NOTE | 2018-06-02 00:13 | PRG ---
DATE OF SERVICE: SUBJECTIVE: Patient is noted with the following vital signs. OBJECTIVE: VITAL SIGNS: Afebrile. Temperature 97.5, pulse 69, respiratory rate of 18, O2 saturations of 97%, blood pressure HEENT: Unremarkable. CARDIOVASCULAR SYSTEM: First and second heart sounds were heard. RESPIRATORY SYSTEM: Clear to auscultation. DIGESTIVE SYSTEM: Benign abdomen. Positive bowel sounds. EXTREMITIES: No peripheral edema. SKIN: No new gross rash. LYMPHATICS: No peripheral lymphadenopathy. LABORATORY INVESTIGATION: Hemoglobin of 8.9. Chemistry showed a creatinine that bumped up to 2.57. IMPRESSION: 1. Acute on chronic kidney disease which bump in creatinine noted. 2. Anemia. PLAN: 1. Hemodynamic support. 2. Avoid potentially nephrotoxic agents. 3. Renally dose all medications for GFR. Job ID: [id number]
[2018-06-02 05:11] LABS: #Eosinphils 0.1 thou/uL (0.0-0.7); #Monocytes 0.4 thou/uL (0.11-0.59); #Neutrophils 1.7 thou/uL (1.40-6.50); %Basophils 0.7 % (0.0-1.0); %Eosinophils 2.6 % (0.0-10.0); %Lymphocytes 30.2 % (21.0-51.0); %Monocytes 13.4 % (0.0-10.0); %Neutrophils 53.1 % (42.0-75.0); Mean Corpuscular HGB CONC 33.2 g/dL (32.0-36.0); Mean Corpuscular Hemoglobin 33.5 pg (27.0-31.0); Mean Platelet Volume 8.7 fL (7.4-10.4); Platelet Count 128 thou/uL (130-400); RBC Distribution Width 12.5 % (11.5-14.5); White Blood Cell (WBC) Count 3.2 thou/uL (4.8-10.8)
[2018-06-02] MEDS: Levothyroxine Sodium 88 MCG TAB PO SCH (05:18)
[2018-06-02 05:37] LABS: Albumin 2.9 g/dL (3.4-4.8); Anion Gap 12 mmol/L (10-20); BUN (Urea Nitrogen) 61 mg/dL (9.8-20.1); BUN/Creatinine Ratio 25.74; Calc. Creatinine Clearance 18 mL/min (70-130); Calcium 8.6 mg/dL (7.8-10.44); Carbon Dioxide 25 mmol/L (23-31); Chloride 104 mmol/L (98-107); Estimated GFR-MDRD 19; Glucose 105 mg/dL (83-110); Sodium 137 mmol/L (136-145)
[2018-06-02] MEDS: Carvedilol 6.25 MG TAB PO SCH (09:09)
[2018-06-02] MEDS: Rivaroxaban 10 MG TAB PO SCH (09:09)
[2018-06-02] MEDS: Insulin Glargine 18 UNITS in Pre-Filled Syringe 1 EACH SC SCH (09:09)
[2018-06-02] MEDS: Ezetimibe 10 MG TAB PO SCH (09:09)
[2018-06-02] MEDS: Amiodarone 200 MG TAB PO SCH (09:09)
[2018-06-02] MEDS: Fenofibrate Nanocrystallized 145 MG TAB PO SCH (09:09)
[2018-06-02] MEDS: HumaLOG 300 UNITS/3 ML VIAL SC PRN (11:06)
[2018-06-02 12:09] VITALS: BP 120/58; TEMP 97.9
--- NOTE | 2018-06-06 05:45 | DIS ---
DATE OF ADMISSION: 05/24/2018 DATE OF DISCHARGE: 06/02/2018 DISCHARGE DIAGNOSES: As of the following. 1. Acute congestive heart failure exacerbation. 2. Diabetes. 3. Acute kidney injury. 4. Coronary artery disease. 5. Hypertension. 6. Atrial fibrillation. HOSPITAL COURSE: The patient is a very pleasant 88-year-old female who initially presented to the hospital on the with complaints of shortness of breath, chest pain, was diagnosed with new onset heart failure. She did have a history of CABG done more than 15 years ago at [facility]. At this time, she was seen by Cardiology and prior to coming to the hospital, she was also seen by Prashanth Johns, who is the reel worker. She also had a pacemaker placed in prior to this. She did have an echocardiogram study that indicated an EF of 25% to 30%. Cardiology was consulted and Nephrology was consulted. The patient continued to improve throughout the hospital stay since the patient's echocardiogram indicated some worsening EF and also cardiomyopathy. At this time, there was a concern that her atrial fibrillation was causing her to have the symptoms. At this time, she underwent a cardioversion. She also had a ROMEO which did not have any clots. She underwent a cardioversion on the with 200 joules and then also her pacemaker was changed to AV, intervals were increased and she was on atrial paced and ventricular sensed. The patient will follow up with her primary care doctor and also with Cardiology as an outpatient, and she continued to improve throughout the hospital stay. There was an issue in terms of her LifeVest since the patient does have a history of dementia. However, the son took responsibility that there would be somebody with her at all times. HOME MEDICATIONS: As the following; 1. Amiodarone 400 mg b.i.d., this will be for two weeks followed by 200 mg b.i.d. and then 200 mg daily. 2. Atorvastatin 10 mg daily. 3. Coreg 6.25 b.i.d. 4. Zetia 10 mg daily. 5. Xarelto 30 mg daily. 6. Ranitidine 150 mg b.i.d. p.r.n. 7. Levothyroxine 88 mcg daily. 8. Fenofibrate 145 daily. 9. Aricept 10 mg at bedtime. 10. Memantine 14 mg p.o. daily. 11. Lyrica 75 mg p.o. t.i.d. 12. Aspirin 81 mg daily. 13. Insulin 18 units subcu q.a.m. PHYSICAL EXAMINATION: VITAL SIGNS: The patient's vital signs on discharge, 97.9, 70, 18, 97% on room air, 120/58. GENERAL: She is awake, alert, and oriented x3. Does not appear in distress. CV: S1, S2 present. No murmurs, rubs, or gallops. ABDOMEN: Soft and nontender. Bowel sounds are present x2. EXTREMITIES: No edema. Again, she will be discharged to home to her family. She will follow up with Cardiology as an outpatient. Just of note, during the hospital stay, she had one episode where she had significant shortness of breath and went into flash pulmonary edema and also was found to be very hypertensive. However, after that she never had an issue with her blood pressure and she has been doing quite well. Also, she does have a history of chronic kidney disease and her creatinine was not significantly at baseline. Her creatinine, however, did improve throughout the hospital stay and she was at 2.37 on discharge. However, her calculated clearance was appropriate for her Xarelto. The patient will need to follow up with her primary and get some lab work checked as an outpatient. Job ID: [id number]
== END 2018-06-02 14:17 | disposition home or self-care (01) | DRG 291 ==
LOC: ERS 15:32 → ERHOLD 16:31 → 2NO 23:39
PROVIDERS: ADMIT Internal Medicine; ATTEND Internal Medicine
PROC: B246ZZ4 Ultrasonography of Right and Left Heart, Transesophageal (ICD-10-PCS; principal; 2018-05-31)
PROC: 5A2204Z Restoration of Cardiac Rhythm, Single (ICD-10-PCS; 2018-05-31)
DX: I13.0 Hypertensive heart and chronic kidney disease with heart failure and stage 1 through stage 4 chronic kidney disease, or unspecified chronic kidney disease (principal); I50.23 Acute on chronic systolic (congestive) heart failure; N17.9 Acute kidney failure, unspecified; E11.22 Type 2 diabetes mellitus with diabetic chronic kidney disease; N18.9 Chronic kidney disease, unspecified; I25.10 Atherosclerotic heart disease of native coronary artery without angina pectoris; E03.9 Hypothyroidism, unspecified; E78.5 Hyperlipidemia, unspecified; I48.0 Paroxysmal atrial fibrillation; D64.9 Anemia, unspecified
CPT/HCPCS: 36415; 36416; 71045; 80061; 80069; 81003; 81015; 82553; 83735; 83880; 84443; 85025; 92960; 93005; 93010; 93306; 93312; 93798; 93970; 94660; 94760; 96374; 96375; J1650; J1940; J2270; J2704; P9047

== ENCOUNTER 2018-06-17 03:04 | Inpatient (IN) | payer MEDICARE ==
[2018-06-17 04:09] LABS: #Eosinphils 0.2 thou/uL (0.0-0.7); #Lymphocytes 1.2 thou/uL (1.20-3.40); #Monocytes 0.5 thou/uL (0.11-0.59); #Neutrophils 4.1 thou/uL (1.40-6.50); %Basophils 0.1 % (0.0-1.0); %Lymphocytes 20.2 % (21.0-51.0); %Monocytes 8.7 % (0.0-10.0); Hemoglobin 8.2 g/dL (12.0-16.0); Mean Platelet Volume 7.2 fL (7.4-10.4); Platelet Count 143 thou/uL (130-400); RBC Distribution Width 14.4 % (11.5-14.5); Red Blood Cell (RBC) Count 2.47 mill/uL (4.20-5.40); White Blood Cell (WBC) Count 6.1 thou/uL (4.8-10.8)
[2018-06-17 04:33] LABS: ALT (SGPT) 29 U/L (8-55); AST (SGOT) 38 U/L (5-34); Albumin 2.6 g/dL (3.4-4.8); Alkaline Phosphatase 55 U/L (40-150); Anion Gap 9 mmol/L (10-20); BUN (Urea Nitrogen) 42 mg/dL (9.8-20.1); Bilirubin, Total 0.4 mg/dL (0.2-1.2); Calc. Creatinine Clearance 0 mL/min (70-130); Calcium 8.7 mg/dL (7.8-10.44); Carbon Dioxide 25 mmol/L (23-31); Chloride 107 mmol/L (98-107); Estimated GFR-MDRD 27; Glucose 95 mg/dL (83-110); Potassium 4.3 mmol/L (3.5-5.1); Protein, Total 6.6 g/dL (6.0-8.3); Sodium 137 mmol/L (136-145)
[2018-06-17 06:36] VITALS: BMI 29.2
[2018-06-17] MEDS ORDERED: Ondansetron ODT 4 MG TAB SL PRN (08:19)
[2018-06-17] MEDS ORDERED: Sodium Chloride 0.9% 1,000 ML IV SCH (08:19)
[2018-06-17] MEDS ORDERED: Acetaminophen 325 MG TAB PO PRN (08:19)
[2018-06-17] MEDS ORDERED: Ondansetron PF 4 MG/2 ML Vial IVP PRN (08:19)
[2018-06-17] MEDS ORDERED: Dextrose 50% Abboject 50 ML SYRINGE SLOW IVP PRN (10:07)
[2018-06-17] MEDS ORDERED: Dextrose 5% in Water 1,000 ML IV PRN (10:07)
[2018-06-17] MEDS: Sodium Chloride 0.9% 1,000 ML IV SCH ×2 (12:30→21:52)
[2018-06-17] MEDS: Pregabalin 75 MG CAP PO SCH ×2 (14:25→22:01)
--- NOTE | 2018-06-17 15:45 | HP ---
PRIMARY CARE PROVIDER: Lalo Chin MD CHIEF COMPLAINT: Bloody diarrhea. HISTORY OF PRESENT ILLNESS: Ms. Katz is a pleasant 88-year-old lady, who was seen at [facility] on June 17, 2018. She was hospitalized at this facility from May 24 to June 02 of this year. She was treated for acute CHF exacerbation, diabetes, acute kidney injury. She was discharged to [facility] [place]. Her [id number] reports that she was doing well at the time of transfer. Following the transfer, she fell down and sustained a right orbital hematoma. She also reportedly had episodes of loss of vision and inability to carry out motor tasks. This was attributed to one of her medications, most likely amiodarone, which was stopped with improvement in her symptoms. She started having bloody diarrhea since yesterday night. The patient is able to provide some history, but not a lot. She denies any chest pain. She denies any abdominal pain. She denies any fevers or chills. She reports having nausea and vomiting, which appears to have resolved. She reports lightheadedness. REVIEW OF SYSTEMS: All other systems reviewed and found to be negative. PAST MEDICAL HISTORY: Hypertension, coronary artery disease, diabetes mellitus type 2, TIA, dyslipidemia, peripheral neuropathy, dementia, hypertension, hypothyroidism, and congestive heart failure. PAST SURGICAL HISTORY: Coronary artery bypass graft, hip replacement, and cholecystectomy. SOCIAL HISTORY: No history of tobacco use, alcohol use, or recreational drug use. FAMILY HISTORY: Both parents of natural causes. CODE STATUS: I discussed her code status. She is DNAR. ALLERGIES: LISINOPRIL. CURRENT MEDICATIONS: 1. [place] p.r.n. 2. Zofran p.r.n. 3. Tylenol 650 mg 2 times a day. 4. Aspirin 81 mg daily. 5. Vitamin D3 5000 units daily. 6. Aricept 10 mg at bedtime. 7. Probiotic one capsule two times a day. 8. Loperamide p.r.n. 9. Memantine 5 mg daily. 10. Lyrica 75 mg three times a day. 11. Pyridoxine 100 mg daily. 12. Ranitidine 150 mg every evening. 13. Vitamin B complex 100 mg daily. 14. Vitamin E 1000 units daily. 15. Lipitor 10 mg every evening. 16. Coreg 6.25 mg two times a day. 17. Zetia 10 mg daily. 18. Lantus 18 units daily. 19. Synthroid 88 mcg daily. 20. Rivaroxaban 15 mg daily. PHYSICAL EXAMINATION: GENERAL: On examination, Ms. Katz is awake and alert, not in acute distress. VITAL SIGNS: Blood pressure 108/61, pulse 70, respiratory rate 16, and oxygen saturation 100% on 2 L of oxygen by nasal cannula. She is afebrile. EYES: She has a right periorbital hematoma. No scleral icterus, no conjunctival pallor. ENT: Moist mucosal membranes. No oropharyngeal erythema or exudates. NECK: Supple, nontender. Trachea is midline. RESPIRATORY: Accessory muscles of breathing are not active. Chest wall movements are symmetric bilaterally. LUNGS: Clear to auscultation without wheezes, rhonchi, or crepitations. CARDIOVASCULAR: S1 and S2 are heard, regular. Peripheral pulses palpable. No carotid bruit. No pericardial rub. ABDOMEN: Soft, nontender, bowel sounds heard. No hepatomegaly. No splenomegaly. NEUROLOGIC: Cranial nerves 2 through 12 intact. Deep tendon reflexes 2+. MUSCULOSKELETAL: Power is 5/5 in all four extremities. SKIN: Bruises. LYMPHATIC: No cervical lymphadenopathy. PSYCHIATRIC: Normal mood, normal affect. The patient is oriented to person and place, not to time. LABORATORY DATA: Ms. Katz's labs and investigations were reviewed. She has normal white count, macrocytic anemia with hemoglobin 8.2, last known hemoglobin 8.0 on June 02, 2018, normal platelet count. Normal sodium, normal potassium, elevated blood urea nitrogen of 42, elevated creatinine of 1.76, last known creatinine 2.37 on June 02, 2018, elevated AST of 38, decreased albumin of 2.6, normal total bilirubin, normal ALT and normal alkaline phosphatase. Lactic acid level is normal. ASSESSMENT AND PLAN: Ms. Katz is a pleasant 88-year-old lady, who was seen at [facility] on June 17, 2018. Her problem list includes: 1. Symptomatic anemia: Ms. Katz is presenting with symptomatic anemia from anemia of acute blood loss from most likely the lower GI tract. She will be admitted to the hospital for further management. G service being consulted for opinion and help with management. We will recheck her H and H. I should note that she has a positive fecal occult blood test. She is hemodynamically stable at this time. 2. Hypertension: We will continue her home medications, monitor vital signs and titrate antihypertensives as needed. 3. Coronary artery disease: Appears to be stable. 4. Diabetes mellitus type 2: We will start the patient on Accu-Chek's and insulin sliding scale. 5. Dementia: Continue Aricept and Namenda. 6. Congestive heart failure: Watch for volume overload. Many thanks for allowing me to participate in your patient's care. Please feel free to contact me with any questions or concerns. LEVEL OF RISK: Moderate. LEVEL OF COMPLEXITY: Moderate. Job ID: [id number]
[2018-06-17 16:06] LABS: Hemoglobin 7.5 g/dL (12.0-16.0)
[2018-06-17] MEDS: Carvedilol 6.25 MG TAB PO SCH (17:15)
[2018-06-17 21:20] LABS: Hemoglobin 7.3 g/dL (12.0-16.0); Platelet Count 112 thou/uL (130-400)
[2018-06-17] MEDS: Donepezil HCl 10 MG TAB PO SCH (22:00)
[2018-06-17] MEDS: Atorvastatin Calcium 10 MG TAB PO SCH (22:01)
[2018-06-18] MEDS: Levothyroxine Sodium 88 MCG TAB PO SCH (05:52)
[2018-06-18 07:24] LABS: #Eosinphils 0.3 thou/uL (0.0-0.7); #Lymphocytes 1.6 thou/uL (1.20-3.40); #Monocytes 0.5 thou/uL (0.11-0.59); #Neutrophils 3.1 thou/uL (1.40-6.50); %Basophils 0.5 % (0.0-1.0); %Eosinophils 4.6 % (0.0-10.0); %Lymphocytes 29.5 % (21.0-51.0); %Monocytes 9.2 % (0.0-10.0); %Neutrophils 56.2 % (42.0-75.0); Hemoglobin 7.4 g/dL (12.0-16.0); Mean Corpuscular HGB CONC 31.7 g/dL (32.0-36.0); Mean Corpuscular Hemoglobin 33.2 pg (27.0-31.0); Mean Platelet Volume 7.6 fL (7.4-10.4); Platelet Count 115 thou/uL (130-400); RBC Distribution Width 14.5 % (11.5-14.5); Red Blood Cell (RBC) Count 2.21 mill/uL (4.20-5.40); White Blood Cell (WBC) Count 5.4 thou/uL (4.8-10.8)
[2018-06-18 07:28] LABS: Anion Gap 9 mmol/L (10-20); BUN (Urea Nitrogen) 35 mg/dL (9.8-20.1); Calc. Creatinine Clearance 26 mL/min (70-130); Carbon Dioxide 21 mmol/L (23-31); Chloride 112 mmol/L (98-107); Estimated GFR-MDRD 29; Glucose 92 mg/dL (83-110); Potassium 4.4 mmol/L (3.5-5.1); Sodium 138 mmol/L (136-145)
[2018-06-18] MEDS: Ezetimibe 10 MG TAB PO SCH (08:11)
[2018-06-18] MEDS: Pregabalin 75 MG CAP PO SCH ×3 (08:11→20:32)
[2018-06-18] MEDS: Carvedilol 6.25 MG TAB PO SCH ×2 (08:12→15:50)
[2018-06-18] MEDS: pyridOXINE 50 MG (B6) TAB PO SCH (08:12)
[2018-06-18] MEDS: Vitamin E 400 UNITS CAP PO SCH (08:13)
[2018-06-18] MEDS: Stress 600 With Zinc 1 TAB PO SCH (08:13)
--- NOTE | 2018-06-18 08:37 | CON ---
DATE OF CONSULTATION: 06/17/2018 REASON FOR CONSULTATION: Hematochezia and history of bloody diarrhea. HISTORY OF PRESENT ILLNESS: Ms. Sally Katz is a very pleasant 88-year-old female hospitalized with rectal bleeding. The patient was in the room along with the patient's daughter. The patient has been hospitalized several times over the years in this hospital. She was seen by me in 2014 because of acute diverticulitis in 01/2015. The patient also had an episode of diverticulitis in December of 2014. The patient was recently hospitalized because of new onset of heart failure and was seen by Dr. Joseph Nixon. She also had acute kidney injury and was seen by Dr. Gabriel for Nephrology evaluation. The patient has anemia even during last admission. Her blood count was at 10.3 on admission, which dropped to 8.5 at the time of discharge. The patient on Xarelto because of cardiac arrhythmia. The patient apparently fell down and had sustained a right orbital hematoma. She also has had some difficulty with seeing things and . This could be because of amiodarone and was stopped. The patient's daughter tells me that she had an episode of mild hematochezia on Sunday on Sunday. Since this morning, she has been passing fairly large amount of blood. The patient has no abdominal pain. No nausea, no vomiting. Her bowel movements are fairly regular. Denies any perianal discomfort or any GI abnormalities. On arrival in the ER, she had a hemoglobin of 8.2, which is about the same when she was discharged; however, it subsequently dropped to 7.5. At that time, the patient appears very comfortable. Denies any abdominal pain, nausea, or vomiting. She does have mild dementia and is on Namenda and Aricept. She has no relevant history. ALLERGIES: LISINOPRIL. SOCIAL HISTORY: The patient does not smoke or drink alcohol. MEDICAL ILLNESSES: 1. Coronary artery disease, status post coronary artery bypass graft more than 15 years ago. 2. Coronary artery stent placement. 3. Hypertension. 4. Type 2 diabetes mellitus. 5. Hyperlipidemia. 6. Hypothyroidism. 7. TIA x2. 8. Peripheral neuropathy. 9. Dementia. 10. Hypothyroidism. 11. New-onset CHF. PAST SURGICAL HISTORY: 1. Status post coronary artery bypass graft. 2. Hip replacement. 3. Status post cholecystectomy. 4. Pacemaker placement two to three years ago. FAMILY HISTORY: There is family history of lung cancer in father and also her siblings. MEDICATIONS: Medication list is suggested by Dr. Mercedes, which includes, 1. Byron. 2. Zofran. 3. Tylenol. 4. Vitamin D3. 5. Loperamide. 6. Lyrica. 7. Pyridoxine. 8. Zantac. 9. Lipitor. 10. Coreg. 11. Xarelto. 12. Lantus 18 units daily. 13. Zetia. 14. Synthroid. REVIEW OF SYSTEMS: 1. Remarkable for recent fall with impaired vision in the right side and also some unsteady gait, which has resolved after stopping the amiodarone. 2. Hematochezia. 3. Generalized weakness and fatigue. PHYSICAL EXAMINATION: GENERAL: She is awake, alert, and communicative. Denies abdominal pain. She is in no distress. VITAL SIGNS: Her pulse is 70 and blood pressure 108/61. HEENT: She has some ecchymotic areas around the right eye from recent fall. Conjunctivae clear. NECK: Supple. No adenitis or thyromegaly noted. CARDIOVASCULAR: First and second heart sounds heard. LUNGS: Clear to auscultation. ABDOMEN: Soft. No organomegaly. No tenderness. No masses. Bowel sounds normal. EXTREMITIES: Reveal no edema. LABORATORY DATA: The lab data shows mild anemia. The hemoglobin was 8.5 at the time of discharge and today 8.2. MCV is 103. Normal lytes. BUN is 42 and creatinine is 1.76. AST 38. Albumin 2.6, bilirubin normal. Normal ALT. CLINICAL IMPRESSION: 1. An 88-year-old female with hematochezia. The patient has no abdominal pain. No nausea or vomiting. The patient has had two episodes of diverticulitis in 2015. 2. New onset congestive heart failure. 3. Cardiac arrhythmia with pacemaker implant. 4. Hypertension. 5. Hypothyroidism. 6. Type 2 diabetes. 7. Transient ischemic attack. 8. Peripheral neuropathy. RECOMMENDATIONS: 1. Discontinue n.p.o. 2. Clear liquid diet. 3. Hold off anticoagulation for next 48 hours. Plan is being made for a colonoscopy in the next 48 hours. Discussed this with the patient's daughter and the patient. The patient had agreement with my suggestion. Job ID: [id number]
[2018-06-18] MEDS ORDERED: Vitamin E 400 UNITS CAP PO SCH (09:00)
--- NOTE | 2018-06-18 14:12 | PDOC.PN ---
- Subjective Encounter Start Date: 06/18/18 Encounter Start Time: 09:00 Pt seen for followup re: symptomatic. Denies chest pain, shortness of breath, fevers or chills. - Objective Resuscitation Status - Order Detail: 06/17/18 10:07 Resuscitation Status Routine Resuscitation Status: DNAR: NO Resuscitation Discussed with: daughter in law Ibeth GALLARDO Reviewed: Yes Vital Signs & Weight: Vital Signs (12 hours) Temp Pulse Resp BP BP Pulse Ox 06/18/18 08:12 126/67 06/18/18 08:00 94 L 06/18/18 07:58 98.3 F 78 20 126/67 94 L 06/18/18 04:16 97 F L 70 16 161/60 H 94 L Weight Admit Weight 154 lb 11.2 oz Weight 154 lb 11.2 oz I&O: 06/17/18 06/18/18 06/19/18 06:59 06:59 06:59 Intake Total 1080 Output Total 375 Balance 705 Result Diagrams: 06/18/18 06:37 06/18/18 06:37 Additional Labs: Accuchecks 06/18/18 06/18/18 06/17/18 11:35 04:17 19:30 POC Glucose 110 107 131 H 06/17/18 17:19 POC Glucose 100 Labs reviewed by me Phys Exam - Physical Examination Constitutional: NAD HEENT: moist MMs, sclera anicteric, oral pharynx no lesions, 2+ tonsils Neck: no nodes, no JVD, supple, full ROM Respiratory: clear to auscultation bilateral Cardiovascular: RRR, no rub S1, S2 Gastrointestinal: soft, non-tender, no distention, positive bowel sounds Neurological: moves all 4 limbs Psychiatric: normal affect Deviation from normal: Oriented to person and place, not to time Deviation from normal: right orbital hematoma Dx/Plan (1) Symptomatic anemia Code(s): D64.9 - ANEMIA, UNSPECIFIED Status: Acute Comment: secondary to lower GI bleed (2) Lower GI bleed Code(s): K92.2 - GASTROINTESTINAL HEMORRHAGE, UNSPECIFIED Status: Acute Comment: Anticoagulation on hold. Transfuse 1 unit pRBC. (3) CAD (coronary artery disease) Code(s): I25.10 - ATHSCL HEART DISEASE OF [place] CORONARY ARTERY W/O ANG PCTRS Status: Chronic Qualifiers: Coronary Disease-Associated Artery/Lesion type: bypass graft [place] vs. 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 of insulin Comment: controlled (5) HTN (hypertension) Code(s): I10 - ESSENTIAL (PRIMARY) HYPERTENSION Status: Chronic Qualifiers: Hypertension type: essential hypertension Qualified Code(s): I10 - Essential (primary) hypertension Comment: controlled (6) Hypothyroidism Code(s): E03.9 - HYPOTHYROIDISM, UNSPECIFIED Status: Chronic Qualifiers: Hypothyroidism type: unspecified Qualified Code(s): E03.9 - Hypothyroidism , unspecified Comment: continue synthroid (7) CKD (chronic kidney disease) stage 4, GFR 15-29 ml/min Code(s): N18.4 - CHRONIC KIDNEY DISEASE, STAGE 4 (SEVERE) Status: Chronic Comment: stable - Plan * . Review of Systems - Review of Systems Constitutional: negative: fever, chills, sweats, weakness, malaise Respiratory: negative: Cough, Shortness of Breath, SOB with Excertion, Pleuritic Pain, Wheezing Cardiovascular: negative: chest pain, palpitations, orthopnea, paroxysmal nocturnal dyspnea, edema, light headedness Gastrointestinal: negative: Nausea, Vomiting, Abdominal Pain, Diarrhea, Constipation, Melena, Hematochezia Genitourinary: negative: Dysuria, Frequency, Incontinence, Hematuria, Retention Skin: negative: Rash, Lesions, Dru, Bruising - Medications/Allergies Allergies/Adverse Reactions: Allergies Allergy/AdvReac Type Severity Reaction Status Date / Time No Known Drug Allergies Allergy Verified 06/17/18 06:41 Medications: Current Medications Atorvastatin Calcium (Lipitor) 10 mg PO QPM [facility] Last Admin: 06/17/18 22:01 Dose: 10 mg Carvedilol (Coreg) 6.25 mg PO BID-[facility] Last Admin: 06/18/18 08:12 Dose: 6.25 mg Cholecalciferol (Vitamin D3) 5,000 units PO DAILY [facility] Last Admin: 06/18/18 08:11 Dose: 5,000 units Dextrose/Water (Dextrose 50%) 25 gm SLOW IVP PRN PRN PRN Reason: Hypoglycemia Donepezil HCl (Aricept) 10 mg PO HS [facility] Last Admin: 06/17/18 22:00 Dose: 10 mg Ezetimibe (Zetia) 10 mg PO DAILY [facility] Last Admin: 06/18/18 08:11 Dose: 10 mg Glucagon (Glucagon) 1 mg IM PRN PRN PRN Reason: Hypoglycemia Sodium Chloride (Normal Saline 0.9%) 1,000 mls @ 70 mls/hr IV .[id number] [facility] Last Admin: 06/17/18 21:52 Dose: 1,000 mls Dextrose/Water (D5w) 1,000 mls @ 0 mls/hr IV .Q0M PRN PRN Reason: Hypoglycemia Insulin Human Lispro (Humalog) 0 units SC .MILD SLIDING SCALE PRN PRN Reason: Mild Correctional Scale Levothyroxine Sodium (Synthroid) 88 mcg PO 0600 [facility] Last Admin: 06/18/18 05:52 Dose: 88 mcg Memantine (Namenda) 5 mg PO DAILY [facility] Last Admin: 06/18/18 08:11 Dose: 5 mg Multivitamins/Zinc (Stress 600 With Zinc) 1 tab PO DAILY [facility] Last Admin: 06/18/18 08:13 Dose: 1 tab Pregabalin (Lyrica) 75 mg PO TID [facility] Last Admin: 06/18/18 08:11 Dose: 75 mg Pyridoxine HCl (Vitamin B 6) 100 mg PO DAILY [facility] Last Admin: 06/18/18 08:12 Dose: 100 mg Vitamin E (Vitamin E) 200 units PO DAILY [facility] Last Admin: 06/18/18 08:13 Dose: 200 units Vitamin E (Vitamin E) 800 units PO DAILY [facility] Last Admin: 06/18/18 08:13 Dose: 800 units
[2018-06-18] MEDS: Sodium Chloride 0.9% 1,000 ML IV SCH ×3 (14:16→20:32)
[2018-06-18] MEDS: Lactinex Tablet PO SCH (20:31)
[2018-06-18] MEDS: Atorvastatin Calcium 10 MG TAB PO SCH (20:32)
[2018-06-18] MEDS: Donepezil HCl 10 MG TAB PO SCH (20:32)
[2018-06-19] MEDS: Levothyroxine Sodium 88 MCG TAB PO SCH (05:23)
[2018-06-19] MEDS: Ezetimibe 10 MG TAB PO SCH (07:49)
[2018-06-19] MEDS: Lactinex Tablet PO SCH ×2 (07:49→19:41)
[2018-06-19] MEDS: pyridOXINE 50 MG (B6) TAB PO SCH (07:50)
[2018-06-19] MEDS: Famotidine 20 MG TAB PO SCH (07:50)
[2018-06-19] MEDS: Carvedilol 6.25 MG TAB PO SCH ×2 (07:50→15:41)
[2018-06-19] MEDS: Pregabalin 75 MG CAP PO SCH ×3 (07:51→19:41)
[2018-06-19] MEDS: Vitamin E 400 UNITS CAP PO SCH (07:53)
[2018-06-19] MEDS: Stress 600 With Zinc 1 TAB PO SCH (07:54)
[2018-06-19 08:10] LABS: #Eosinphils 0.3 thou/uL (0.0-0.7); #Lymphocytes 1.2 thou/uL (1.20-3.40); #Monocytes 0.4 thou/uL (0.11-0.59); #Neutrophils 2.8 thou/uL (1.40-6.50); %Basophils 0.4 % (0.0-1.0); %Eosinophils 6.8 % (0.0-10.0); %Lymphocytes 25.5 % (21.0-51.0); %Monocytes 9.1 % (0.0-10.0); %Neutrophils 58.3 % (42.0-75.0); Hemoglobin 9.4 g/dL (12.0-16.0); Mean Corpuscular Hemoglobin 32.9 pg (27.0-31.0); Mean Platelet Volume 7.9 fL (7.4-10.4); Platelet Count 130 thou/uL (130-400); RBC Distribution Width 14.6 % (11.5-14.5); Red Blood Cell (RBC) Count 2.85 mill/uL (4.20-5.40); White Blood Cell (WBC) Count 4.8 thou/uL (4.8-10.8)
[2018-06-19 08:30] LABS: Anion Gap 10 mmol/L (10-20); BUN (Urea Nitrogen) 28 mg/dL (9.8-20.1); Calc. Creatinine Clearance 29 mL/min (70-130); Calcium 8.5 mg/dL (7.8-10.44); Carbon Dioxide 20 mmol/L (23-31); Chloride 113 mmol/L (98-107); Estimated GFR-MDRD 32; Glucose 121 mg/dL (83-110); Potassium 4.3 mmol/L (3.5-5.1); Sodium 139 mmol/L (136-145)
--- NOTE | 2018-06-19 13:16 | PDOC.PN ---
- Subjective Encounter Start Date: 06/19/18 Encounter Start Time: 13:14 Pt seen for followup re: symptomatic anemia. Feels better today. - Objective Resuscitation Status - Order Detail: 06/17/18 10:07 Resuscitation Status Routine Resuscitation Status: DNAR: NO Resuscitation Discussed with: daughter in law Ibeth GALLARDO Reviewed: Yes Vital Signs & Weight: Vital Signs (12 hours) Temp Pulse Resp BP BP BP Pulse Ox 06/19/18 11:00 98 F 72 19 138/68 94 L 06/19/18 08:00 94 L 06/19/18 07:50 155/63 H 06/19/18 07:32 98 F 72 17 155/63 H 94 L 06/19/18 03:43 98.5 F 69 20 153/80 H 95 Weight Admit Weight 154 lb 11.2 oz Weight 154 lb 11.2 oz I&O: 06/18/18 06/19/18 06/20/18 06:59 06:59 06:59 Intake Total 1080 350 Output Total 375 Balance 705 350 Result Diagrams: 06/19/18 07:16 06/19/18 07:16 Additional Labs: Accuchecks 06/19/18 06/19/18 06/18/18 11:42 05:23 16:17 POC Glucose 184 H 136 H 100 Labs reviewed by me Phys Exam - Physical Examination Constitutional: NAD HEENT: moist MMs Neck: supple Respiratory: clear to auscultation bilateral Cardiovascular: RRR Gastrointestinal: soft Neurological: moves all 4 limbs Psychiatric: normal affect Dx/Plan (1) Symptomatic anemia Code(s): D64.9 - ANEMIA, UNSPECIFIED Status: Acute Comment: secondary to lower GI bleed, improved with pRBC transfusion. (2) Lower GI bleed Code(s): K92.2 - GASTROINTESTINAL HEMORRHAGE, UNSPECIFIED Status: Acute Comment: s/p one unit pRBC transfusion. (3) CAD (coronary artery disease) Code(s): I25.10 - ATHSCL HEART DISEASE OF [place] CORONARY ARTERY W/O ANG PCTRS Status: Chronic Qualifiers: Coronary Disease-Associated Artery/Lesion type: bypass graft [place] vs. transplanted heart: [place] heart Associated angina: with stable angina Qualified Code(s): I25.708 - Atherosclerosis of coronary artery bypass graft(s) , unspecified, with other forms of angina pectoris Comment: stable (4) DM type 2 (diabetes mellitus, type 2) Status: Chronic Qualifiers: Diabetes mellitus senior living insulin use: with intermediate accountant use Diabetes mellitus complication status: with unspecified complications Qualified Code(s) : E11.8 - Type 2 diabetes mellitus with unspecified complications; Z79.4 - [facility] (current) use of insulin Comment: controlled (5) HTN (hypertension) Code(s): I10 - ESSENTIAL (PRIMARY) HYPERTENSION Status: Chronic Qualifiers: Hypertension type: essential hypertension Qualified Code(s): I10 - Essential (primary) hypertension Comment: controlled (6) Hypothyroidism Code(s): E03.9 - HYPOTHYROIDISM, UNSPECIFIED Status: Chronic Qualifiers: Hypothyroidism type: unspecified Qualified Code(s): E03.9 - Hypothyroidism , unspecified Comment: on synthroid (7) CKD (chronic kidney disease) stage 4, GFR 15-29 ml/min Code(s): N18.4 - CHRONIC KIDNEY DISEASE, STAGE 4 (SEVERE) Status: Chronic Comment: stable - Plan * . Review of Systems - Review of Systems Cardiovascular: negative: chest pain, palpitations, orthopnea, paroxysmal nocturnal dyspnea, edema, light headedness Gastrointestinal: negative: Nausea, Vomiting, Abdominal Pain, Diarrhea, Constipation, Melena, Hematochezia - Medications/Allergies Allergies/Adverse Reactions: Allergies Allergy/AdvReac Type Severity Reaction Status Date / Time No Known Drug Allergies Allergy Verified 06/17/18 06:41 Medications: Current Medications Acidophilus (Floranex) 1 tab PO BID [facility] Last Admin: 06/19/18 07:49 Dose: 1 tab Atorvastatin Calcium (Lipitor) 10 mg PO QPM [facility] Last Admin: 06/18/18 20:32 Dose: 10 mg Carvedilol (Coreg) 6.25 mg PO BID[facility] Last Admin: 06/19/18 07:50 Dose: 6.25 mg Cholecalciferol (Vitamin D3) 5,000 units PO DAILY [facility] Last Admin: 06/19/18 07:49 Dose: 5,000 units Dextrose/Water (Dextrose 50%) 25 gm SLOW IVP PRN PRN PRN Reason: Hypoglycemia Donepezil HCl (Aricept) 10 mg PO HS [facility] Last Admin: 06/18/18 20:32 Dose: 10 mg Ezetimibe (Zetia) 10 mg PO DAILY [facility] Last Admin: 06/19/18 07:49 Dose: 10 mg Famotidine (Pepcid) 20 mg PO DAILY [facility] Last Admin: 06/19/18 07:50 Dose: 20 mg Glucagon (Glucagon) 1 mg IM PRN PRN PRN Reason: Hypoglycemia Sodium Chloride (Normal Saline 0.9%) 1,000 mls @ 70 mls/hr IV .[id number] [facility] Last Admin: 06/18/18 20:32 Dose: 1,000 mls Dextrose/Water (D5w) 1,000 mls @ 0 mls/hr IV .Q0M PRN PRN Reason: Hypoglycemia Insulin Human Lispro (Humalog) 0 units SC .MILD SLIDING SCALE PRN PRN Reason: Mild Correctional Scale Levothyroxine Sodium (Synthroid) 88 mcg PO 0600 [facility] Last Admin: 06/19/18 05:23 Dose: 88 mcg Memantine (Namenda) 5 mg PO DAILY [facility] Last Admin: 06/19/18 07:51 Dose: 5 mg Multivitamins/Zinc (Stress 600 With Zinc) 1 tab PO DAILY [facility] Last Admin: 06/19/18 07:54 Dose: 1 tab Pregabalin (Lyrica) 75 mg PO TID [facility] Last Admin: 06/19/18 07:51 Dose: 75 mg Pyridoxine HCl (Vitamin B 6) 100 mg PO DAILY [facility] Last Admin: 06/19/18 07:50 Dose: 100 mg Sodium Chloride (Flush - Normal Saline) 10 ml IVF PRN PRN PRN Reason: Saline Flush Vitamin E (Vitamin E) 200 units PO DAILY [facility] Last Admin: 06/19/18 09:06 Dose: 200 units Vitamin E (Vitamin E) 800 units PO DAILY [facility] Last Admin: 06/19/18 07:53 Dose: 800 units
--- NOTE | 2018-06-19 15:59 | PRG ---
DATE OF SERVICE: 06/19/2018 SUBJECTIVE: This is an 88-year-old female who was hospitalized two days ago with the abdominal pain and hematochezia. The patient has had no recurrent bleeding. Her blood count dropped down to 7.3 yesterday and was transfused 1 unit of packed RBCs. Post transfusion, her hemoglobin is 9.4 and hematocrit 29.2. The patient appears very comfortable. She is awake, alert, communicative. Did have abdominal pain, nausea, and vomiting. OBJECTIVE: VITAL SIGNS: Essentially stable. Afebrile. Pulse is 72, blood pressure 138/68. CARDIOVASCULAR: First and second heart sounds. LUNGS: Clear to auscultation. ABDOMEN: Abdomen is soft. Abdomen is nontender. No organomegaly or masses. ASSESSMENT: gastrointestinal bleeding, etiology unclear. PLAN: Colonoscopy tomorrow. Job ID: [id number]
[2018-06-19] MEDS: HumaLOG 300 UNITS/3 ML VIAL SC PRN (16:33)
[2018-06-19] MEDS ORDERED: GoLYTELY 4,000 ml Bottle PO SCH (17:00)
[2018-06-19] MEDS: Donepezil HCl 10 MG TAB PO SCH (19:40)
[2018-06-19] MEDS: Atorvastatin Calcium 10 MG TAB PO SCH (19:40)
[2018-06-20] MEDS: Levothyroxine Sodium 88 MCG TAB PO SCH (05:23)
[2018-06-20] MEDS: Carvedilol 6.25 MG TAB PO SCH ×2 (05:23→18:23)
[2018-06-20 05:34] LABS: #Eosinphils 0.4 thou/uL (0.0-0.7); #Lymphocytes 1.4 thou/uL (1.20-3.40); #Monocytes 0.4 thou/uL (0.11-0.59); #Neutrophils 1.7 thou/uL (1.40-6.50); %Basophils 0.4 % (0.0-1.0); %Eosinophils 10.1 % (0.0-10.0); %Lymphocytes 35.5 % (21.0-51.0); %Monocytes 9.7 % (0.0-10.0); %Neutrophils 44.3 % (42.0-75.0); Hemoglobin 8.5 g/dL (12.0-16.0); Mean Corpuscular HGB CONC 32.1 g/dL (32.0-36.0); Mean Platelet Volume 7.9 fL (7.4-10.4); Platelet Count 129 thou/uL (130-400); RBC Distribution Width 14.2 % (11.5-14.5); Red Blood Cell (RBC) Count 2.59 mill/uL (4.20-5.40); White Blood Cell (WBC) Count 3.9 thou/uL (4.8-10.8)
[2018-06-20 05:48] LABS: Anion Gap 10 mmol/L (10-20); BUN (Urea Nitrogen) 19 mg/dL (9.8-20.1); Calc. Creatinine Clearance 35 mL/min (70-130); Calcium 8.3 mg/dL (7.8-10.44); Carbon Dioxide 22 mmol/L (23-31); Chloride 110 mmol/L (98-107); Estimated GFR-MDRD 39; Glucose 130 mg/dL (83-110); Sodium 138 mmol/L (136-145)
[2018-06-20] MEDS: Pregabalin 75 MG CAP PO SCH ×3 (09:19→20:45)
[2018-06-20] MEDS: Lactinex Tablet PO SCH ×2 (09:19→20:45)
[2018-06-20] MEDS: pyridOXINE 50 MG (B6) TAB PO SCH (09:19)
[2018-06-20] MEDS: Ezetimibe 10 MG TAB PO SCH (09:19)
[2018-06-20] MEDS: Famotidine 20 MG TAB PO SCH (09:19)
[2018-06-20] MEDS: Stress 600 With Zinc 1 TAB PO SCH (09:19)
[2018-06-20] MEDS: Vitamin E 400 UNITS CAP PO SCH (09:20)
[2018-06-20] MEDS ORDERED: PROPOFOL 200 MG/20 ML VIAL ONE (12:10)
--- NOTE | 2018-06-20 12:49 | PDOC.PN ---
- Subjective Encounter Start Date: 06/20/18 Encounter Start Time: 08:40 Pt seen for symptomatic anemia. No complaints today. - Objective Resuscitation Status - Order Detail: 06/17/18 10:07 Resuscitation Status Routine Resuscitation Status: DNAR: NO Resuscitation Discussed with: daughter in law Ibeth GALLARDO Reviewed: Yes Vital Signs & Weight: Vital Signs (12 hours) Temp Pulse Resp BP BP Pulse Ox 06/20/18 11:00 98.2 F 70 20 171/71 H 91 L 06/20/18 08:00 98.2 F 70 18 154/71 H 95 06/20/18 04:00 98.8 F 68 20 147/64 H 93 L Weight Admit Weight 154 lb 11.2 oz Weight 154 lb 11.2 oz I&O: 06/19/18 06/20/18 06/21/18 06:59 06:59 06:59 Intake Total 350 Balance 350 Result Diagrams: 06/20/18 04:45 06/20/18 04:45 Additional Labs: Accuchecks 06/20/18 06/19/18 06/19/18 04:26 18:56 15:59 POC Glucose 152 H 226 H 209 H Labs reviewed by me Phys Exam - Physical Examination Constitutional: NAD HEENT: moist MMs Neck: supple Respiratory: clear to auscultation bilateral Cardiovascular: RRR Gastrointestinal: soft Neurological: moves all 4 limbs Psychiatric: normal affect Deviation from normal: right orbital hematoma Dx/Plan (1) Symptomatic anemia Code(s): D64.9 - ANEMIA, UNSPECIFIED Status: Acute Comment: improved with pRBC transfusion. (2) Lower GI bleed Code(s): K92.2 - GASTROINTESTINAL HEMORRHAGE, UNSPECIFIED Status: Acute Comment: s/p one unit pRBC transfusion. Hb 8.5 today (3) CAD (coronary artery disease) Code(s): I25.10 - ATHSCL HEART DISEASE OF [place] CORONARY ARTERY W/O ANG PCTRS Status: Chronic Qualifiers: Coronary Disease-Associated Artery/Lesion type: bypass graft [place] vs. 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 use Diabetes mellitus complication status: with unspecified complications Qualified Code(s) : E11.8 - Type 2 diabetes mellitus with unspecified complications; Z79.4 - halfway (current) use of insulin Comment: controlled (5) HTN (hypertension) Code(s): I10 - ESSENTIAL (PRIMARY) HYPERTENSION Status: Chronic Qualifiers: Hypertension type: essential hypertension Qualified Code(s): I10 - Essential (primary) hypertension Comment: controlled (6) Hypothyroidism Code(s): E03.9 - HYPOTHYROIDISM, UNSPECIFIED Status: Chronic Qualifiers: Hypothyroidism type: unspecified Qualified Code(s): E03.9 - Hypothyroidism , unspecified Comment: will continue synthroid (7) CKD (chronic kidney disease) stage 4, GFR 15-29 ml/min Code(s): N18.4 - CHRONIC KIDNEY DISEASE, STAGE 4 (SEVERE) Status: Chronic Comment: stable - Plan * . Review of Systems - Review of Systems Cardiovascular: negative: chest pain, palpitations, orthopnea, paroxysmal nocturnal dyspnea, edema, light headedness Gastrointestinal: negative: Nausea, Vomiting, Abdominal Pain, Diarrhea, Constipation, Melena, Hematochezia - Medications/Allergies Allergies/Adverse Reactions: Allergies Allergy/AdvReac Type Severity Reaction Status Date / Time No Known Drug Allergies Allergy Verified 06/17/18 06:41 Medications: Current Medications Acidophilus (Floranex) 1 tab PO BID [facility] Last Admin: 06/20/18 09:19 Dose: Not Given Atorvastatin Calcium (Lipitor) 10 mg PO QPM [facility] Last Admin: 06/19/18 19:40 Dose: 10 mg Carvedilol (Coreg) 6.25 mg PO BID-WM [facility] Last Admin: 06/20/18 05:23 Dose: 6.25 mg Cholecalciferol (Vitamin D3) 5,000 units PO DAILY [facility] Last Admin: 06/20/18 09:19 Dose: Not Given Dextrose/Water (Dextrose 50%) 25 gm SLOW IVP PRN PRN PRN Reason: Hypoglycemia Donepezil HCl (Aricept) 10 mg PO HS [facility] Last Admin: 06/19/18 19:40 Dose: 10 mg Ezetimibe (Zetia) 10 mg PO DAILY [facility] Last Admin: 06/20/18 09:19 Dose: Not Given Famotidine (Pepcid) 20 mg PO DAILY [facility] Last Admin: 06/20/18 09:19 Dose: Not Given Glucagon (Glucagon) 1 mg IM PRN PRN PRN Reason: Hypoglycemia Sodium Chloride (Normal Saline 0.9%) 1,000 mls @ 70 mls/hr IV .[id number] [facility] Last Admin: 06/18/18 20:32 Dose: 1,000 mls Dextrose/Water (D5w) 1,000 mls @ 0 mls/hr IV .Q0M PRN PRN Reason: Hypoglycemia Insulin Human Lispro (Humalog) 0 units SC .MILD SLIDING SCALE PRN PRN Reason: Mild Correctional Scale Last Admin: 06/19/18 16:33 Dose: 3 unit Levothyroxine Sodium (Synthroid) 88 mcg PO 0600 [facility] Last Admin: 06/20/18 05:23 Dose: 88 mcg Memantine (Namenda) 5 mg PO DAILY [facility] Last Admin: 06/20/18 09:19 Dose: Not Given Multivitamins/Zinc (Stress 600 With Zinc) 1 tab PO DAILY [facility] Last Admin: 06/20/18 09:19 Dose: Not Given Pregabalin (Lyrica) 75 mg PO TID [facility] Last Admin: 06/20/18 09:19 Dose: Not Given Pyridoxine HCl (Vitamin B 6) 100 mg PO DAILY [facility] Last Admin: 06/20/18 09:19 Dose: Not Given Sodium Chloride (Flush - Normal Saline) 10 ml IVF PRN PRN PRN Reason: Saline Flush Vitamin E (Vitamin E) 200 units PO DAILY [facility] Last Admin: 06/20/18 09:20 Dose: Not Given Vitamin E (Vitamin E) 800 units PO DAILY [facility] Last Admin: 06/20/18 09:20 Dose: Not Given
[2018-06-20] MEDS: Sodium Chloride 0.9% 1,000 ML IV SCH (15:31)
[2018-06-20] MEDS: HumaLOG 300 UNITS/3 ML VIAL SC PRN (18:31)
--- NOTE | 2018-06-20 20:31 | OP ---
DATE OF PROCEDURE: 06/20/2018 PROCEDURE PERFORMED: Colonoscopy. PREOPERATIVE DIAGNOSES: Rectal bleeding, anemia due to blood loss. POSTOPERATIVE DIAGNOSES: 1. Sigmoid diverticular disease. 2. Hemorrhoids . DESCRIPTION OF PROCEDURE: The patient was placed on her left lateral position and was given sedation by Anesthesia Department. A rectal exam was done before the scope was advanced into rectum. No lesions felt on rectal exam. A Pentax video colonoscope was introduced into rectum and advanced all the way to the cecum. The prep was excellent. The mucosa appeared normal throughout the colon. The ileocecal area, cecum, ascending colon, no pathology. The hepatic flexure, transverse colon, splenic flexure, descending colon, no pathology. The sigmoid colon shows scattered diverticular disease. No colitis seen. Rectum, I could not retroflex as the tip numerous attempts. The scope was withdrawn. On careful examination, the anal canal showed hemorrhoids. No other pathology. RECOMMENDATIONS: 1. Heart healthy diet. 2. Follow up H and H. 3. If the bleeding recurs, I have to consider stopping the anticoagulation. Job ID: [id number]
[2018-06-20] MEDS: Atorvastatin Calcium 10 MG TAB PO SCH (20:45)
[2018-06-20] MEDS: Donepezil HCl 10 MG TAB PO SCH (20:45)
--- NOTE | 2018-06-20 23:50 | RAD ---
AP VIEW CHEST: 06/20/18 HISTORY: Shortness of breath. AP view chest obtained on 06/20/18. Comparison made to a previous exam from 05/30/18. AP view chest demonstrates a dual lead intracardiac pacing device. Sternotomy wires seen. there is ma rked cardiomegaly. Pulmonary vascular congestion is seen. No evidence of effusions, pneumonia or pneu mothorax seen. IMPRESSION: Cardiomegaly and pulmonary vascular congestion. POS: [facility]
[2018-06-20 23:54] LABS: Anion Gap 10 mmol/L (10-20); BUN (Urea Nitrogen) 18 mg/dL (9.8-20.1); Calc. Creatinine Clearance 34 mL/min (70-130); Calcium 8.6 mg/dL (7.8-10.44); Carbon Dioxide 25 mmol/L (23-31); Chloride 108 mmol/L (98-107); Estimated GFR-MDRD 38; Glucose 215 mg/dL (83-110); Potassium 3.9 mmol/L (3.5-5.1); Sodium 139 mmol/L (136-145)
[2018-06-20 23:58] LABS: Troponin I 0.076 ng/mL (< 0.028)
--- NOTE | 2018-06-21 00:28 | PDOC.EVN ---
Event Note - Event Note Event Note: Called by RN that she concern that pt reporting SOB and she is hearing rales. Pt has been on IVF. Review of chart indicate hx of CHF but not any diuretics. Labs, Cr 1.3 which similar today. Trop not elevated. EKG atiral paced, CXR Pulm vascular congestion. BNP pending - D/c IVF - RT asked to evalute pt - Duonebs PRN - O2 PRN - Lasix 20 mg IV x1
[2018-06-21] MEDS ORDERED: Furosemide 20 MG/2 ML VIAL SLOW IVP SCH (00:45)
[2018-06-21] MEDS: Levothyroxine Sodium 88 MCG TAB PO SCH (06:12)
[2018-06-21] MEDS: HumaLOG 300 UNITS/3 ML VIAL SC PRN ×2 (06:25→09:42)
[2018-06-21] MEDS: Sodium Chloride 0.9% 1,000 ML IV SCH (06:40)
[2018-06-21] MEDS: Ezetimibe 10 MG TAB PO SCH (08:01)
[2018-06-21] MEDS: Lactinex Tablet PO SCH ×2 (08:01→20:27)
[2018-06-21] MEDS: pyridOXINE 50 MG (B6) TAB PO SCH (08:02)
[2018-06-21] MEDS: Pregabalin 75 MG CAP PO SCH ×3 (08:03→20:28)
[2018-06-21] MEDS: Aspirin Chewable 81 MG TAB PO SCH (08:04)
[2018-06-21] MEDS: Carvedilol 6.25 MG TAB PO SCH ×2 (08:04→17:23)
[2018-06-21] MEDS: Famotidine 20 MG TAB PO SCH (08:05)
[2018-06-21] MEDS: Vitamin E 400 UNITS CAP PO SCH (08:05)
[2018-06-21] MEDS: Stress 600 With Zinc 1 TAB PO SCH (08:05)
[2018-06-21] MEDS: Rivaroxaban 15 MG TAB PO SCH (08:08)
[2018-06-21] MEDS ORDERED: Rivaroxaban 10 MG TAB PO SCH (09:00)
[2018-06-21 09:19] LABS: #Eosinphils 0.1 thou/uL (0.0-0.7); #Lymphocytes 1.2 thou/uL (1.20-3.40); #Monocytes 0.6 thou/uL (0.11-0.59); #Neutrophils 3.6 thou/uL (1.40-6.50); %Basophils 0.3 % (0.0-1.0); %Eosinophils 2.6 % (0.0-10.0); %Lymphocytes 21.3 % (21.0-51.0); %Monocytes 10.3 % (0.0-10.0); %Neutrophils 65.6 % (42.0-75.0); Hemoglobin 9.4 g/dL (12.0-16.0); Mean Corpuscular HGB CONC 32.3 g/dL (32.0-36.0); Mean Corpuscular Hemoglobin 33.1 pg (27.0-31.0); Mean Platelet Volume 7.8 fL (7.4-10.4); Platelet Count 139 thou/uL (130-400); RBC Distribution Width 14.1 % (11.5-14.5); Red Blood Cell (RBC) Count 2.83 mill/uL (4.20-5.40); White Blood Cell (WBC) Count 5.5 thou/uL (4.8-10.8)
[2018-06-21 09:33] LABS: Anion Gap 8 mmol/L (10-20); BUN (Urea Nitrogen) 15 mg/dL (9.8-20.1); Calc. Creatinine Clearance 33 mL/min (70-130); Calcium 8.9 mg/dL (7.8-10.44); Carbon Dioxide 29 mmol/L (23-31); Chloride 105 mmol/L (98-107); Estimated GFR-MDRD 37; Glucose 218 mg/dL (83-110); Potassium 3.4 mmol/L (3.5-5.1); Sodium 139 mmol/L (136-145)
[2018-06-21] MEDS ORDERED: Furosemide 40 MG/4 ML VIAL SLOW IVP SCH (12:15)
--- NOTE | 2018-06-21 17:54 | PDOC.PN ---
- Subjective Encounter Start Date: 06/21/18 Encounter Start Time: 09:00 Pt seen for followup re: volume overload. Feels okay, no complaints. - Objective Resuscitation Status - Order Detail: 06/17/18 10:07 Resuscitation Status Routine Resuscitation Status: DNAR: NO Resuscitation Discussed with: daughter in law Ibeth GALLARDO Reviewed: Yes Vital Signs & Weight: Vital Signs (12 hours) Temp Pulse Resp BP BP Pulse Ox 06/21/18 17:23 168/76 H 06/21/18 08:04 168/76 H 06/21/18 08:00 96 06/21/18 07:27 98.0 F 73 20 168/76 H 96 Weight Admit Weight 154 lb 11.2 oz Weight 154 lb 11.2 oz I&O: 06/20/18 06/21/18 06/22/18 06:59 06:59 06:59 Intake Total 720 Balance 720 Result Diagrams: 06/21/18 08:55 06/21/18 08:55 Additional Labs: Accuchecks 06/21/18 06/21/18 06/21/18 16:43 11:41 04:23 POC Glucose 192 H 169 H 228 H 06/20/18 19:42 POC Glucose 218 H Labs reviewed by me Phys Exam - Physical Examination Constitutional: NAD HEENT: moist MMs Neck: supple Bibasal crackles Cardiovascular: RRR Gastrointestinal: soft Neurological: moves all 4 limbs Psychiatric: normal affect Dx/Plan (1) Volume overload Code(s): E87.70 - FLUID OVERLOAD, UNSPECIFIED Status: Acute Comment: continue diuretics (2) Symptomatic anemia Code(s): D64.9 - ANEMIA, UNSPECIFIED Status: Acute Comment: stable (3) CAD (coronary artery disease) Code(s): I25.10 - ATHSCL HEART DISEASE OF [place] CORONARY ARTERY W/O ANG PCTRS Status: Chronic Qualifiers: Coronary Disease-Associated Artery/Lesion type: bypass graft [place] vs. 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 Diabetes mellitus complication status: with unspecified complications Qualified Code(s) : E11.8 - Type 2 diabetes mellitus with unspecified complications; Z79.4 - retirement (current) use of insulin Comment: controlled (5) HTN (hypertension) Code(s): I10 - ESSENTIAL (PRIMARY) HYPERTENSION Status: Chronic Qualifiers: Hypertension type: essential hypertension Qualified Code(s): I10 - Essential (primary) hypertension Comment: controlled (6) Hypothyroidism Code(s): E03.9 - HYPOTHYROIDISM, UNSPECIFIED Status: Chronic Qualifiers: Hypothyroidism type: unspecified Qualified Code(s): E03.9 - Hypothyroidism , unspecified Comment: on synthroid (7) CKD (chronic kidney disease) stage 4, GFR 15-29 ml/min Code(s): N18.4 - CHRONIC KIDNEY DISEASE, STAGE 4 (SEVERE) Status: Chronic Comment: stable (8) Lower GI bleed Code(s): K92.2 - GASTROINTESTINAL HEMORRHAGE, UNSPECIFIED Status: Resolved Comment: resolved - Plan * . Review of Systems - Review of Systems Respiratory: negative: Cough, Shortness of Breath, SOB with Excertion, Pleuritic Pain, Wheezing Cardiovascular: negative: chest pain, palpitations, orthopnea, paroxysmal nocturnal dyspnea, edema, light headedness - Medications/Allergies Allergies/Adverse Reactions: Allergies Allergy/AdvReac Type Severity Reaction Status Date / Time No Known Drug Allergies Allergy Verified 06/17/18 06:41 Medications: Current Medications Acidophilus (Floranex) 1 tab PO BID [facility] Last Admin: 06/21/18 08:01 Dose: 1 tab Albuterol/Ipratropium (Duoneb) 3 ml NEB Q4H PRN PRN Reason: SOB &/or Wheezing Last Admin: 06/21/18 00:57 Dose: 3 ml Aspirin (Aspirin Chewable) 81 mg PO DAILY [facility] Last Admin: 06/21/18 08:04 Dose: 81 mg Atorvastatin Calcium (Lipitor) 10 mg PO QPM [facility] Last Admin: 06/20/18 20:45 Dose: 10 mg Carvedilol (Coreg) 6.25 mg PO BID[facility] Last Admin: 06/21/18 17:23 Dose: 6.25 mg Cholecalciferol (Vitamin D3) 5,000 units PO DAILY [facility] Last Admin: 06/21/18 08:01 Dose: 5,000 units Dextrose/Water (Dextrose 50%) 25 gm SLOW IVP PRN PRN PRN Reason: Hypoglycemia Donepezil HCl (Aricept) 10 mg PO HS [facility] Last Admin: 06/20/18 20:45 Dose: 10 mg Ezetimibe (Zetia) 10 mg PO DAILY [facility] Last Admin: 06/21/18 08:01 Dose: 10 mg Famotidine (Pepcid) 20 mg PO DAILY [facility] Last Admin: 06/21/18 08:05 Dose: 20 mg Glucagon (Glucagon) 1 mg IM PRN PRN PRN Reason: Hypoglycemia Dextrose/Water (D5w) 1,000 mls @ 0 mls/hr IV .Q0M PRN PRN Reason: Hypoglycemia Insulin Human Lispro (Humalog) 0 units SC .MILD SLIDING SCALE PRN PRN Reason: Mild Correctional Scale Last Admin: 06/21/18 09:42 Dose: 3 unit Levothyroxine Sodium (Synthroid) 88 mcg PO 0600 [facility] Last Admin: 06/21/18 06:12 Dose: 88 mcg Memantine (Namenda) 5 mg PO DAILY [facility] Last Admin: 06/21/18 08:03 Dose: 5 mg Multivitamins/Zinc (Stress 600 With Zinc) 1 tab PO DAILY [facility] Last Admin: 06/21/18 08:05 Dose: 1 tab Pregabalin (Lyrica) 75 mg PO TID [facility] Last Admin: 06/21/18 14:40 Dose: 75 mg Pyridoxine HCl (Vitamin B 6) 100 mg PO DAILY [facility] Last Admin: 06/21/18 08:02 Dose: 100 mg Rivaroxaban (Xarelto) 15 mg PO DAILY [facility] Last Admin: 06/21/18 08:08 Dose: 15 mg Sodium Chloride (Flush - Normal Saline) 10 ml IVF PRN PRN PRN Reason: Saline Flush Vitamin E (Vitamin E) 200 units PO DAILY [facility] Last Admin: 06/21/18 08:06 Dose: 200 units Vitamin E (Vitamin E) 800 units PO DAILY [facility] Last Admin: 06/21/18 08:05 Dose: 800 units
[2018-06-21] MEDS: Donepezil HCl 10 MG TAB PO SCH (20:27)
[2018-06-21] MEDS: Atorvastatin Calcium 10 MG TAB PO SCH (20:28)
[2018-06-22] MEDS: Levothyroxine Sodium 88 MCG TAB PO SCH (05:07)
[2018-06-22 05:53] LABS: #Eosinphils 0.3 thou/uL (0.0-0.7); #Lymphocytes 1.4 thou/uL (1.20-3.40); #Monocytes 0.5 thou/uL (0.11-0.59); #Neutrophils 1.7 thou/uL (1.40-6.50); %Basophils 0.1 % (0.0-1.0); %Eosinophils 7.8 % (0.0-10.0); %Lymphocytes 36.8 % (21.0-51.0); %Monocytes 11.7 % (0.0-10.0); %Neutrophils 43.5 % (42.0-75.0); Hemoglobin 8.7 g/dL (12.0-16.0); Mean Corpuscular HGB CONC 31.7 g/dL (32.0-36.0); Mean Corpuscular Hemoglobin 32.7 pg (27.0-31.0); Mean Platelet Volume 7.8 fL (7.4-10.4); Platelet Count 133 thou/uL (130-400); Red Blood Cell (RBC) Count 2.65 mill/uL (4.20-5.40); White Blood Cell (WBC) Count 3.9 thou/uL (4.8-10.8)
[2018-06-22 06:12] LABS: Anion Gap 9 mmol/L (10-20); BUN (Urea Nitrogen) 15 mg/dL (9.8-20.1); Calc. Creatinine Clearance 34 mL/min (70-130); Calcium 8.6 mg/dL (7.8-10.44); Carbon Dioxide 29 mmol/L (23-31); Chloride 105 mmol/L (98-107); Estimated GFR-MDRD 39; Glucose 166 mg/dL (83-110); Potassium 3.3 mmol/L (3.5-5.1); Sodium 140 mmol/L (136-145)
[2018-06-22] MEDS: HumaLOG 300 UNITS/3 ML VIAL SC PRN ×2 (06:45→12:43)
[2018-06-22] MEDS: Carvedilol 6.25 MG TAB PO SCH (09:19)
[2018-06-22] MEDS: Aspirin Chewable 81 MG TAB PO SCH (09:20)
[2018-06-22] MEDS: pyridOXINE 50 MG (B6) TAB PO SCH (09:20)
[2018-06-22] MEDS: Lactinex Tablet PO SCH (09:21)
[2018-06-22] MEDS: Vitamin E 400 UNITS CAP PO SCH (09:21)
[2018-06-22] MEDS: Famotidine 20 MG TAB PO SCH (09:22)
[2018-06-22] MEDS: Pregabalin 75 MG CAP PO SCH (09:22)
[2018-06-22] MEDS: Ezetimibe 10 MG TAB PO SCH (09:22)
[2018-06-22] MEDS: Rivaroxaban 15 MG TAB PO SCH (09:22)
[2018-06-22] MEDS: Stress 600 With Zinc 1 TAB PO SCH (09:22)
[2018-06-22] MEDS ORDERED: Potassium Chloride 20 MEQ TAB PO SCH (12:45)
[2018-06-22 14:28] VITALS: BP 128/68; TEMP 98.1
--- NOTE | 2018-06-22 14:30 | DIS ---
DATE OF ADMISSION: 06/17/2018 DATE OF DISCHARGE: 06/22/2018 PRIMARY CARE PROVIDER: Lalo Chin MD DISCHARGE DIAGNOSES: 1. Symptomatic anemia. 2. Anemia of acute blood loss. 3. Sigmoid diverticular disease. 4. Hemorrhoids. CONDITION OF PATIENT ON THE DAY OF DISCHARGE: Stable. I assessed Ms. Katz on the day of discharge. She denies any chest pain or shortness of breath. Vital signs are stable. S1 and S2 are heard, regular. Lungs are clear to auscultation bilaterally. DISCHARGE MEDICATIONS: She is being discharged on furosemide 20 mg orally daily, in addition to her pre-admission home medications as dictated on my history and physical note dated June 17, 2008. Of note, rivaroxaban and aspirin are being continued. These will need to be reassessed if she has further episodes of bleeding. HOSPITAL COURSE: Ms. Katz is a pleasant 88-year-old lady, who was admitted to [facility] on June 17, 2018 for symptomatic anemia secondary to lower GI bleed. She was seen by Gastroenterology Service, Dr. Roberto. Her aspirin and rivaroxaban were on hold at the time of admission. She underwent colonoscopy on June 20, which showed sigmoid diverticular disease and hemorrhoids. Gastroenterology service recommended restarting her anticoagulation as well as aspirin and to consider discontinuing it if she has recurrence of the bleed. On the night of June 20, she was found to be hypoxic. Chest x-ray revealed a pulmonary vascular congestion. She improved after receiving diuretics. She received 1 unit packed RBC transfusion during this hospitalization. On the day of discharge, she has sodium of 140, potassium 3.3 which is being replaced, creatinine 1.30, white count 3900, hemoglobin 8.7, and platelet count 133,000. Many thanks for allowing me to participate in your patient's care. Please feel free to contact me with any questions or concerns. DISCHARGE DESTINATION: [facility], from where patient was admitted to the hospital. TIME SPENT: Total amount of time spent coordinating this discharge: 33 minutes. Job ID: [id number]
--- NOTE | 2018-06-25 07:49 | PQF ---
[employer] Molding Line Assistant Crystal Reports Winform ViewerTC GAO DAVID [id number] [facility] [id number] CLINICAL DOCUMENTATION CLARIFICATION FORM: POST DISCHARGE Addendum to original discharge summary date: ____ Late entry note date: 06/25/2018 Please exercise your independent, professional judgment in responding to the clarification form. Clinical indicators are provided on the bottom of this form for your review Please check appropriate box(s): HEART FAILURE: A. TYPE: [ X ] Systolic / HFrEF [ ] Diastolic / HFpEF [ ] Combined Systolic / Diastolic B. ACUITY [ ] Acute [ ] Acute on Chronic [ X ] Chronic [ ] Other diagnosis [ ] Unable to determine In addition, please specify: Present on Admission (POA): [ X ] Yes [ ] No [ ] Unable to determine For continuity of documentation, please document condition throughout progress notes and discharge summary. Thank You. CLINICAL INDICATORS - SIGNS / SYMPTOMS / LABS CHF- H&P, AND CONSULT VOLUME OVERLOAD- PN / BNP PENDING- EVENT NOTE CXR SHOWS PULMONARY VASCULAR CONGESTION- EVENT NOTE, H&P RISKS: CAD- H&P, ALL PROGRESS NOTES CKD- H&P, ALL PROGRESS NOTES Hypertension- H&P, ALL PROGRESS NOTES TREATMENTS: PLACED ON IV LASIX 20 MG- EVENT NOTE [employer] Molding Line Assistant Crystal Reports Winform Viewer (This form is maintained as a part of the permanent medical record) 2014 [employer]. All Rights Reserved Livier [email or web address] [phone] MTDD
--- NOTE | 2018-06-25 13:03 | PDOC.EVN ---
Event Note - Event Note Event Note: Late entry on 06/25/2018: Patient's discharge diagnoses also include; Chronic systolic CHF, present on admission.
== END 2018-06-22 14:21 | DRG 378 ==
LOC: ERS 03:04 → T4-B 04:48
PROVIDERS: ADMIT Hospitalist; ATTEND Hospitalist
PROC: 30233N1 Transfusion of Nonautologous Red Blood Cells into Peripheral Vein, Percutaneous Approach (ICD-10-PCS; 2018-06-18)
PROC: 0DJD8ZZ Inspection of Lower Intestinal Tract, Via Natural or Artificial Opening Endoscopic (ICD-10-PCS; principal; 2018-06-20)
DX: K92.2 Gastrointestinal hemorrhage, unspecified (principal); D62 Acute posthemorrhagic anemia; I13.0 Hypertensive heart and chronic kidney disease with heart failure and stage 1 through stage 4 chronic kidney disease, or unspecified chronic kidney disease; N18.4 Chronic kidney disease, stage 4 (severe); I50.22 Chronic systolic (congestive) heart failure; K57.30 Diverticulosis of large intestine without perforation or abscess without bleeding; I25.10 Atherosclerotic heart disease of native coronary artery without angina pectoris; E78.5 Hyperlipidemia, unspecified; E11.40 Type 2 diabetes mellitus with diabetic neuropathy, unspecified; F03.90 Unspecified dementia, unspecified severity, without behavioral disturbance, psychotic disturbance, mood disturbance, and anxiety; Z66 Do not resuscitate; K64.9 Unspecified hemorrhoids; E03.9 Hypothyroidism, unspecified; E11.22 Type 2 diabetes mellitus with diabetic chronic kidney disease; Z79.82 Long term (current) use of aspirin; Z86.73 Personal history of transient ischemic attack (TIA), and cerebral infarction without residual deficits; Z95.1 Presence of aortocoronary bypass graft; Z96.649 Presence of unspecified artificial hip joint; Z90.49 Acquired absence of other specified parts of digestive tract
CPT/HCPCS: 36415; 36416; 36430; 71045; 80048; 80053; 82274; 83605; 83880; 84484; 85025; 86850; 86900; 86901; 87324; 87449; 87899; 93005; 93010; 94640; 96360; J1940; J2704; J7620; P9016

== ENCOUNTER 2018-09-06 12:46 | Inpatient (IN) | payer MEDICARE ==
--- NOTE | 2018-09-06 13:13 | RAD ---
Chest one view HISTORY: Dyspnea. COMPARISON: 06/20/2018. FINDINGS: Cardiac silhouette is magnified and enlarged. Pulmonary vasculature is slightly engorged, b ut much less than on the prior exam. Subtle ill-defined parenchymal opacity over the lateral aspect of the right upper lobe is less pronounced than on the prior study. Left basilar subtle parenchymal o pacity is noted. Patient is slightly rotated leftward. Postoperative changes and a multilead left subclavian cardiac e lectronic device. No evidence of pneumothorax. IMPRESSION: Cardiomegaly. Borderline pulmonary vascular congestion. This represents significant improvement from the 06/20/2018 e xam.
[2018-09-06 13:26] LABS: #Eosinphils 0.2 thou/uL (0.0-0.7); #Lymphocytes 1.4 thou/uL (1.20-3.40); #Monocytes 0.6 thou/uL (0.11-0.59); #Neutrophils 3.4 thou/uL (1.40-6.50); %Basophils 0.5 % (0.0-1.0); %Eosinophils 3.9 % (0.0-10.0); %Lymphocytes 24.9 % (21.0-51.0); %Monocytes 10.6 % (0.0-10.0); %Neutrophils 60.2 % (42.0-75.0); Hemoglobin 10.3 g/dL (12.0-16.0); Mean Corpuscular HGB CONC 31.3 g/dL (32.0-36.0); Mean Corpuscular Hemoglobin 31.9 pg (27.0-31.0); Mean Platelet Volume 8.7 fL (7.4-10.4); Platelet Count 128 thou/uL (130-400); RBC Distribution Width 15.2 % (11.5-14.5); Red Blood Cell (RBC) Count 3.24 mill/uL (4.20-5.40); White Blood Cell (WBC) Count 5.7 thou/uL (4.8-10.8)
[2018-09-06 13:48] LABS: ALT (SGPT) 16 U/L (8-55); AST (SGOT) 21 U/L (5-34); Albumin 2.8 g/dL (3.4-4.8); Alkaline Phosphatase 100 U/L (40-150); Anion Gap 11 mmol/L (10-20); BUN (Urea Nitrogen) 63 mg/dL (9.8-20.1); Bilirubin, Total 0.4 mg/dL (0.2-1.2); CK (CPK) 82 U/L (29-168); Calc. Creatinine Clearance 0 mL/min (70-130); Carbon Dioxide 29 mmol/L (23-31); Chloride 102 mmol/L (98-107); Estimated GFR-MDRD 23; Globulin 4.9 g/dL (2.4-3.5); Protein, Total 7.7 g/dL (6.0-8.3); Sodium 138 mmol/L (136-145)
[2018-09-06 13:49] LABS: Glucose 58 mg/dL (83-110)
[2018-09-06] MEDS ORDERED: Dextrose 50% Abboject 50 ML SYRINGE ONE (13:51)
[2018-09-06 14:14] LABS: CKMB 1.6 ng/mL (0-6.6)
[2018-09-06] MEDS ORDERED: Furosemide 20 MG/2 ML VIAL ONE (15:36)
[2018-09-06] MEDS ORDERED: Furosemide 40 MG/4 ML VIAL ONE (15:36)
[2018-09-06] MEDS ORDERED: Aspirin Chewable 81 MG TAB ONE (15:36)
[2018-09-06 16:46] LABS: Troponin I 0.039 ng/mL (< 0.028)
[2018-09-06] MEDS ORDERED: Ondansetron PF 4 MG/2 ML Vial IVP PRN (17:48)
[2018-09-06] MEDS ORDERED: Acetaminophen 325 MG TAB PO PRN (17:48)
[2018-09-06] MEDS ORDERED: Ondansetron ODT 4 MG TAB SL PRN (17:48)
[2018-09-06 19:42] VITALS: BMI 34.0
[2018-09-06 20:38] LABS: Troponin I 0.048 ng/mL (< 0.028)
[2018-09-06] MEDS ORDERED: Loperamide HCl 2 MG CAP PO PRN (20:56)
[2018-09-06] MEDS ORDERED: Dextrose 5% in Water 1,000 ML IV PRN (21:02)
[2018-09-06] MEDS ORDERED: Dextrose 50% Abboject 50 ML SYRINGE SLOW IVP PRN (21:02)
[2018-09-06] MEDS: Famotidine 20 MG TAB PO SCH (22:00)
[2018-09-06] MEDS: Atorvastatin Calcium 10 MG TAB PO SCH (22:00)
[2018-09-06] MEDS: Furosemide 40 MG/4 ML VIAL SLOW IVP SCH (22:02)
[2018-09-06] MEDS: Donepezil HCl 10 MG TAB PO SCH (22:02)
[2018-09-06] MEDS: Pregabalin 75 MG CAP PO SCH (22:02)
[2018-09-06] MEDS: Acetaminophen ER (8hr) 650 MG TAB PO SCH (22:03)
--- NOTE | 2018-09-06 23:07 | HP ---
PRIMARY CARE PHYSICIAN: Dr. Chin. CODE STATUS: Full code. TIME OF EVALUATION: 8:40 p.m. CHIEF COMPLAINT: Shortness of breath and leg swelling. HISTORY OF PRESENT ILLNESS: This is an 88-year-old female patient with past medical history of dementia, congestive heart failure, hypothyroidism, pacemaker, previous UT, TIA, type 2 diabetes, hypertension, CHF, atrial fibrillation, came to the hospital after having increased shortness of breath and severe bilateral leg edema. The patient is in a senior living. The patient is nonverbal, noncooperative. Information has been gathered from nursing staff and records. No clear triggers. No alleviating factors. Symptoms were reportedly sudden. REVIEW OF SYSTEMS: Unable to obtain. The patient is not cooperative to interview. PAST MEDICAL HISTORY: As reported in HPI. PAST SURGICAL HISTORY: Coronary artery bypass graft surgery, 3-vessel disease; cholecystectomy; cardiac stents. PSYCH HISTORY: No previous psych history. KNOWN ALLERGIES: Lisinopril. FAMILY HISTORY: Reviewed, noncontributory to this case. REPORTED MEDICATIONS: 1. Levothyroxine. 2. Aspirin. 3. Lyrica. 4. [place]. 5. Ranitidine. 6. Probiotic. 7. Xarelto. 8. Zetia. 9. Namenda. 10. Coreg. 11. Lantus. 12. SoloStar. 13. Metolazone. 14. Torsemide. 15. Ferrous sulfate. 16. Vitamin D3. 17. Atorvastatin. PHYSICAL EXAMINATION: VITAL SIGNS: On presentation; heart rate 70, respiratory rate 18, pain 2/10, blood pressure 142/75 with temperature 98.4. GENERAL APPEARANCE: The patient is arousable, sleepy, disoriented, underlying dementia. HEENT: Eyes, normal conjunctivae. Moist oral mucosa. Anicteric. No JVD. RESPIRATORY: Bilateral air entry is decreased. The patient is obese. No rales. No wheezes. Symmetric expansion. CARDIOVASCULAR: Normal rate, regular rhythm. No murmurs. No gallop. EXTREMITIES: Bilateral leg edema. ABDOMEN: Soft. Normal bowel sounds. MUSCULOSKELETAL: Baseline range of motion and strength. No tenderness. SKIN: Warm, intact. No pallor. No rash. No redness. Peripheral pulses are present. Capillary refill seems to be intact. NEUROLOGIC: Unable to fully explore. The patient has dementia. No evidence of any new focal weakness. PSYCH: Unable to fully explore due to dementia. IMAGING STUDIES: EKG was reviewed. The patient has AV sequential dual-chamber electronic pacemaker, ventricular rate 72, QRS 176. Chest x-ray was reviewed. The patient has borderline pulmonary vascular congestion. This represents significant improvement from 06/20/2018. LABORATORY DATA: Labs were reviewed. The patient has white count 5.7, hemoglobin 10.3, MCV 102, platelet count 128, neutrophils 60.2. Chemistry; sodium 138, potassium 4.0, chloride 102, carbon dioxide 29, anion gap 11, BUN 63, creatinine 2.07, previous admission the creatinine was 1.4, GFR 23, glucose 58, calcium 9.0 , total bilirubin 0.4. LFTs were negative. Troponin 0.029, the second one is 0.048. Beta natriuretic peptide 296. ASSESSMENT AND PLAN: The patient will be placed in the hospital with following medical problems: 1. Acute exacerbation of congestive heart failure due to ventricular systolic dysfunction as per last echo records that were reviewed done on May 31, 2018. The patient was started on diuresis, reconcile home medications, adjust treatment as per tolerance. 2. Underlying dementia. The patient will need support as inpatient. 3. Acute kidney injury on chronic kidney disease. The patient has a creatinine of 2.0 that is increased from previous value of 1.4. GFR is 23. This is stage 3. The patient most likely is cardiorenal. We will start diuresis. We will monitor kidney function. If no improvement, might need Nephrology evaluation for assistance with outpatient. 4. Hypoglycemia, glucose 58, might be related to the patient not eating properly. The patient has been able to sit up and eat. We will continue to monitor blood sugar, we will treat accordingly. 5. Non-ST segment elevation myocardial infarction type 2 secondary to underlying congestive heart failure with troponin in the range of 0.029 and second one 0.048. We will treat underlying condition. We will monitor. 6. Hypothyroidism. Continue hormone replacement. 7. Uncontrolled diabetes. The patient has hypoglycemia. Reconcile home medications. Sliding scale for optimal control. 8. Uncontrolled hypertension. The patient has systolic 142. Reconcile home medications. We will adjust treatment as needed. 9. History of pacemaker, which is working properly as seen on the EKG. 10. History of coronary artery disease. The patient has previous stents. Reconcile home medications. The increase in troponin does not seems to be related to an acute coronary syndrome. 11. Deep venous thrombosis prophylaxis. Job ID: [id number] MTDD
[2018-09-07 04:57] LABS: #Eosinphils 0.2 thou/uL (0.0-0.7); #Lymphocytes 1.6 thou/uL (1.20-3.40); #Monocytes 0.6 thou/uL (0.11-0.59); #Neutrophils 4.3 thou/uL (1.40-6.50); %Basophils 0.5 % (0.0-1.0); %Lymphocytes 23.9 % (21.0-51.0); %Monocytes 8.6 % (0.0-10.0); Hemoglobin 10.2 g/dL (12.0-16.0); Mean Corpuscular HGB CONC 31.2 g/dL (32.0-36.0); Mean Corpuscular Hemoglobin 31.5 pg (27.0-31.0); Mean Platelet Volume 8.6 fL (7.4-10.4); Platelet Count 113 thou/uL (130-400); Red Blood Cell (RBC) Count 3.24 mill/uL (4.20-5.40); White Blood Cell (WBC) Count 6.8 thou/uL (4.8-10.8)
[2018-09-07 05:13] LABS: Anion Gap 10 mmol/L (10-20); BUN (Urea Nitrogen) 63 mg/dL (9.8-20.1); Calc. Creatinine Clearance 25 mL/min (70-130); Calcium 9.4 mg/dL (7.8-10.44); Carbon Dioxide 33 mmol/L (23-31); Chloride 100 mmol/L (98-107); Estimated GFR-MDRD 22; Glucose 101 mg/dL (83-110); Potassium 3.7 mmol/L (3.5-5.1); Sodium 139 mmol/L (136-145)
[2018-09-07] MEDS: Levothyroxine Sodium 88 MCG TAB PO SCH (06:07)
[2018-09-07] MEDS: pyridOXINE 50 MG (B6) TAB PO SCH (08:59)
[2018-09-07] MEDS: Ezetimibe 10 MG TAB PO SCH (09:00)
[2018-09-07] MEDS ORDERED: INSULIN GLARGINE HUM REC ANLOG 18 UNIT SQ SCH (09:00)
[2018-09-07] MEDS: Pregabalin 75 MG CAP PO SCH ×3 (09:01→20:01)
[2018-09-07] MEDS: Carvedilol 6.25 MG TAB PO SCH ×2 (09:01→17:57)
[2018-09-07] MEDS: Aspirin Chewable 81 MG TAB PO SCH (09:01)
[2018-09-07] MEDS: Furosemide 40 MG/4 ML VIAL SLOW IVP SCH ×2 (09:02→20:00)
[2018-09-07] MEDS: Acetaminophen ER (8hr) 650 MG TAB PO SCH ×2 (09:03→20:00)
--- NOTE | 2018-09-07 12:13 | PRG ---
DATE OF SERVICE: 09/07/2018 SUBJECTIVE: The patient reports she is actually breathing fairly comfortably, still has some discomfort in her legs. Nurse reports she had some difficulty with having a bowel movement this morning, although she did eventually make it happen. The patient denies any abdominal pain presently. PHYSICAL EXAMINATION: VITAL SIGNS: Temperature 97.8, pulse 70, respirations 18, O2 saturation 93% on room air, and BP 145/67. GENERAL APPEARANCE: Age-appropriate female. She is in no distress. She is sleeping lightly, easily awakens, very pleasant, cooperative. HEART: Regular rate and rhythm without murmurs, gallops, or rubs. LUNGS: Diminished, but I cannot appreciate any wheezes or rales. ABDOMEN: Soft, nontender, and nondistended. EXTREMITIES: Reveal 2+ pitting edema of the lower extremities up to and past the level of the knees. There is no significant erythema or lesions. PSYCH: The patient is very mildly pleasantly confused consistent with her dementia. LABORATORY DATA: White count 5.7, hemoglobin 10.3, and platelets 128. BUN 63, creatinine 2.07, and glucose was initially 58 and most recent 105. Troponins 0.029, 0.039, and 0.048 and BNP was 1286. IMPRESSION AND PLAN: 1. Decompensated systolic congestive heart failure. Continue with IV diuresis as the patient has significant persistent anasarca. 2. Cardiomyopathy with an ejection fraction of 20% to 25% The patient was previously on a LifeVest back in May that was 3 months ago. She does not have [address] Need to attempt to talk to her family and Cardiology and find out what the plan is regarding the cardiomyopathy. In the meantime, continue diuresis. She is also currently on a beta seth with carvedilol, we will continue that as well. 3. Chronic kidney disease stage 4. Her numbers currently are in-line with her baseline. 4. Elevated troponins, likely normal for this patient's age and renal function. However, the slight upward trend is consistent with an non-ST segment elevation myocardial infarction type 2 secondary to demand ischemia related to the decompensated heart failure. 5. Hypothyroidism. Continue usual medications. 6. Hypertension. Continue home medications. 7. History of coronary artery disease. 8. Hypoglycemia, resolved. 9. Chronic dementia. Job ID: [id number]
[2018-09-07] MEDS: Rivaroxaban 15 MG TAB PO SCH (17:59)
[2018-09-07] MEDS: Atorvastatin Calcium 10 MG TAB PO SCH (20:00)
[2018-09-07] MEDS: Senokot S 8.6-50 MG TAB PO SCH (20:00)
[2018-09-07] MEDS: Donepezil HCl 10 MG TAB PO SCH (20:00)
[2018-09-07] MEDS: Famotidine 20 MG TAB PO SCH (20:00)
[2018-09-08] MEDS: Levothyroxine Sodium 88 MCG TAB PO SCH (05:32)
[2018-09-08] MEDS: Carvedilol 6.25 MG TAB PO SCH ×2 (08:32→17:42)
[2018-09-08] MEDS: Acetaminophen ER (8hr) 650 MG TAB PO SCH ×2 (09:28→21:39)
[2018-09-08] MEDS: Ezetimibe 10 MG TAB PO SCH (09:28)
[2018-09-08] MEDS: Pregabalin 75 MG CAP PO SCH ×3 (09:29→21:39)
[2018-09-08] MEDS: pyridOXINE 50 MG (B6) TAB PO SCH (09:29)
[2018-09-08] MEDS: Aspirin Chewable 81 MG TAB PO SCH (09:30)
[2018-09-08] MEDS: Senokot S 8.6-50 MG TAB PO SCH ×2 (09:30→21:39)
[2018-09-08] MEDS: Furosemide 40 MG/4 ML VIAL SLOW IVP SCH ×2 (09:30→21:40)
[2018-09-08] MEDS: HumaLOG 300 UNITS/3 ML VIAL SC PRN ×2 (11:51→17:48)
--- NOTE | 2018-09-08 11:58 | PDOC.PN ---
- Subjective Encounter Start Date: 09/08/18 Encounter Start Time: 11:56 Patient seen and examined, states she feels about the same, no new issues or complaints in the last 24 hours, all questions answered. - Objective Resuscitation Status - Order Detail: 09/06/18 20:59 Resuscitation Status Routine Resuscitation Status: FULL: Full Resuscitation Vital Signs & Weight: Vital Signs (12 hours) Temp Pulse Resp BP BP Pulse Ox 09/08/18 08:32 141/65 H 09/08/18 08:00 97.8 F 71 18 141/65 H 96 09/08/18 02:56 97.8 F 70 17 173/72 H 97 Weight Weight 168 lb 1.6 oz I&O: 09/07/18 09/08/18 09/09/18 06:59 06:59 06:59 Intake Total 200 1020 Output Total 2400 4100 Balance -2200 -3080 Result Diagrams: 09/07/18 04:40 09/07/18 04:40 Additional Labs: Accuchecks 09/08/18 09/08/18 09/08/18 11:03 05:21 00:45 POC Glucose 386 H 320 H 318 H 09/07/18 09/07/18 16:53 11:10 POC Glucose 274 H 171 H Phys Exam - Physical Examination Constitutional: NAD HEENT: PERRLA, moist MMs, sclera anicteric Neck: no nodes, no JVD, supple Respiratory: no wheezing, no rales, no rhonchi inspiratory crackles Cardiovascular: RRR, no significant murmur, no rub Gastrointestinal: soft, non-tender, no distention, positive bowel sounds Musculoskeletal: pulses present, edema present Dx/Plan (1) DOT (acute kidney injury) Code(s): N17.9 - ACUTE KIDNEY FAILURE, UNSPECIFIED Status: Acute (2) Acute exacerbation of CHF (congestive heart failure) Code(s): I50.9 - HEART FAILURE, UNSPECIFIED Status: Acute Qualifiers: Comment: ef of 25%, severe concentric lvh (3) Generalized weakness Code(s): R53.1 - WEAKNESS Status: Acute (4) Volume overload Code(s): E87.70 - FLUID OVERLOAD, UNSPECIFIED Status: Acute Comment: continue diuretics (5) CAD (coronary artery disease) Code(s): I25.10 - ATHSCL HEART DISEASE OF [place] CORONARY ARTERY W/O ANG PCTRS Status: Chronic Qualifiers: Comment: stable (6) CKD (chronic kidney disease) stage 4, GFR 15-29 ml/min Code(s): N18.4 - CHRONIC KIDNEY DISEASE, STAGE 4 (SEVERE) Status: Chronic Comment: stable (7) DM type 2 (diabetes mellitus, type 2) Status: Chronic Qualifiers: Comment: controlled (8) HTN (hypertension) Code(s): I10 - ESSENTIAL (PRIMARY) HYPERTENSION Status: Chronic Qualifiers: Comment: controlled (9) Hypothyroidism Code(s): E03.9 - HYPOTHYROIDISM, UNSPECIFIED Status: Chronic Qualifiers: Comment: on synthroid - Plan * cont IV diuresis, patient stating she feels a bit better * EF 20-25% in 05/2018, patient stated she had a lifevest but doesn't know where it is not, states she's seen Dr. Trujillo in the past, will place consult for cardio * labs in AM * no other changes in plan of care for now * case and plan d/w patient at length, she understood and agreed with this plan
[2018-09-08] MEDS: Rivaroxaban 15 MG TAB PO SCH (17:42)
--- NOTE | 2018-09-08 20:32 | CON ---
DATE OF CONSULTATION: HISTORY OF PRESENT ILLNESS: The patient is an 88-year-old woman, who has a history of coronary artery disease and ischemic cardiomyopathy, who presented with apparently increasing dyspnea and lower extremity swelling. The patient has a long history of ischemic cardiomyopathy. She has previously undergone coronary artery bypass surgery. The patient unfortunately suffers from severe dementia. She is unable to give any type of coherent history. The patient was at the half-way when she apparently became short of breath and had progressive lower extremity swelling. The patient denies being dyspneic. The patient also denies having any chest discomfort. PAST MEDICAL HISTORY: 1. Coronary artery disease. 2. Hypertension. 3. Cardiomyopathy. 4. Dyslipidemia. 5. Atrial fibrillation. 6. History of pacemaker placement. PAST SURGICAL HISTORY: Cholecystectomy and coronary bypass surgery. MEDICATIONS: See nursing list. ALLERGIES: NONE. SOCIAL HISTORY: She lives in a half-way. REVIEW OF SYSTEMS: Not obtainable. FAMILY HISTORY: Not obtainable. PHYSICAL EXAMINATION: GENERAL: Confused woman, in no acute distress. VITAL SIGNS: Blood pressure 147/66. NECK: Showed no jugular venous distention. LUNGS: Clear to auscultation. HEART: Regular rate and rhythm. Normal S1 and S2. ABDOMEN: Nondistended. EXTREMITIES: Showed moderate bilateral edema. VASCULAR: Radial pulses are 2+. LABORATORY RESULTS: Her sodium 139, potassium 3.7, chloride 100, bicarb 33, BUN 63, and creatinine 2.1. White blood cell count 6.8, hemoglobin 10.2, hematocrit 32.8, platelet count 113. Her EKG reveals electronic ventricular pacemaker. IMPRESSION: 1. Congestive heart failure, mild. 2. History of ischemic cardiomyopathy. 3. History of coronary bypass surgery. 4. Chronic renal insufficiency. 5. History of atrial fibrillation. 6. Severe dementia. 7. History of pacemaker placement. This patient presents with mild congestive heart failure. She is breathing comfortably on room air and has a sat of 96%. The patient does have mild edema. She will be diuresed with Lasix. Hopefully, the patient could be discharged tomorrow back to her residence. Job ID: [id number] [facility]
[2018-09-08] MEDS: Donepezil HCl 10 MG TAB PO SCH (21:39)
[2018-09-08] MEDS: Atorvastatin Calcium 10 MG TAB PO SCH (21:39)
[2018-09-08] MEDS: Famotidine 20 MG TAB PO SCH (21:40)
[2018-09-08] MEDS ORDERED: HumaLOG 300 UNITS/3 ML VIAL SC PRN (22:36)
[2018-09-09] MEDS: Levothyroxine Sodium 88 MCG TAB PO SCH (05:27)
[2018-09-09 05:41] LABS: #Eosinphils 0.1 thou/uL (0.0-0.7); #Monocytes 0.7 thou/uL (0.11-0.59); #Neutrophils 3.7 thou/uL (1.40-6.50); %Basophils 0.5 % (0.0-1.0); %Eosinophils 1.8 % (0.0-10.0); %Lymphocytes 30.5 % (21.0-51.0); %Monocytes 10.9 % (0.0-10.0); %Neutrophils 56.3 % (42.0-75.0); Hemoglobin 10.8 g/dL (12.0-16.0); Mean Corpuscular HGB CONC 31.6 g/dL (32.0-36.0); Mean Corpuscular Hemoglobin 32.4 pg (27.0-31.0); Mean Platelet Volume 8.4 fL (7.4-10.4); Platelet Count 110 thou/uL (130-400); RBC Distribution Width 15.2 % (11.5-14.5); Red Blood Cell (RBC) Count 3.34 mill/uL (4.20-5.40); White Blood Cell (WBC) Count 6.6 thou/uL (4.8-10.8)
[2018-09-09 05:54] LABS: ALT (SGPT) 14 U/L (8-55); AST (SGOT) 18 U/L (5-34); Albumin 2.7 g/dL (3.4-4.8); Alkaline Phosphatase 98 U/L (40-150); Anion Gap 12 mmol/L (10-20); BUN (Urea Nitrogen) 50 mg/dL (9.8-20.1); Bilirubin, Total 0.7 mg/dL (0.2-1.2); Calc. Creatinine Clearance 22 mL/min (70-130); Calcium 9.5 mg/dL (7.8-10.44); Carbon Dioxide 36 mmol/L (23-31); Chloride 92 mmol/L (98-107); Estimated GFR-MDRD 22; Globulin 5.1 g/dL (2.4-3.5); Glucose 204 mg/dL (83-110); Potassium 3.4 mmol/L (3.5-5.1); Protein, Total 7.8 g/dL (6.0-8.3); Sodium 137 mmol/L (136-145)
[2018-09-09] MEDS: Senokot S 8.6-50 MG TAB PO SCH (09:00)
[2018-09-09] MEDS: Ezetimibe 10 MG TAB PO SCH (09:00)
[2018-09-09] MEDS: pyridOXINE 50 MG (B6) TAB PO SCH (09:00)
[2018-09-09] MEDS: Aspirin Chewable 81 MG TAB PO SCH (09:01)
[2018-09-09] MEDS: Pregabalin 75 MG CAP PO SCH ×2 (09:01→16:06)
[2018-09-09] MEDS: Carvedilol 6.25 MG TAB PO SCH ×2 (09:02→16:04)
[2018-09-09] MEDS: Furosemide 40 MG/4 ML VIAL SLOW IVP SCH (09:02)
[2018-09-09] MEDS: Acetaminophen ER (8hr) 650 MG TAB PO SCH (09:09)
[2018-09-09] MEDS: HumaLOG 300 UNITS/3 ML VIAL SC PRN (12:28)
[2018-09-09] MEDS: Rivaroxaban 15 MG TAB PO SCH ×2 (16:04→16:06)
[2018-09-09 16:24] VITALS: BP 182/76
[2018-09-09 16:30] VITALS: TEMP 98
--- NOTE | 2018-09-10 02:20 | DIS ---
DATE OF ADMISSION: 09/06/2018 DATE OF DISCHARGE: 09/09/2018 ADMITTING DIAGNOSES: Congestive heart failure decompensation, edema, diabetes mellitus, hypertension, hyperlipidemia, volume overload. DISCHARGE DIAGNOSES: Congestive heart failure decompensation, stable. Hypervolemia, stable. Diabetes mellitus type 2, stable. Volume overload, resolved. Shortness of breath, resolved. HOSPITAL COURSE: This is an 88-year-old female, slightly noncompliant, being admitted because of shortness of breath and hypervolemic state. The patient has a significantly low ejection fraction and was here in May, was given a LifeVest but at this point in time does not have it. She is unaware of where it went, the son did not know either. The patient lives at the [facility]. The patient has a cardiac device in place, however the pacemaker has not been upgraded to an AICD. The patient supposedly was to follow up with [facility], which she has not done so at this point in time. The patient and family were advised to have the patient follow up at [facility], consider upgrade of the cardiac device pacemaker so that an AICD component can also be added to it. The patient at point in time of discharge stable, back to her baseline, was to be discharged to the [facility]. Call placed to her son and voicemail left that he did not answer at [phone], requested to call back to the nurse and have me paged if the patient's family has any questions. At this point in time, the patient's condition is stable. We will give her Lasix 60 mg twice a day and resume rest of her home medications and discharge the patient. Case and plan discussed with patient at length. She understood and agreed with this plan. Case and plan were also discussed with the son, Maxwell prior to discharge. He understood and agreed with the plan at this time. DISPOSITION: [facility]. FOLLOWUP: Follow up with PCP within 1 week. MEDICATIONS: See MAR. ACTIVITY: As tolerated with assistance as needed. DIET: Low-fat, low-calorie, high-fiber diet. CONDITION: Stable. PROGNOSIS: Guarded. Job ID: [id number]
== END 2018-09-09 18:00 | DRG 280 ==
LOC: ERS 12:46 → 2NO 17:29
PROVIDERS: ADMIT Internal Medicine; ATTEND Internal Medicine
DX: I13.0 Hypertensive heart and chronic kidney disease with heart failure and stage 1 through stage 4 chronic kidney disease, or unspecified chronic kidney disease (principal); I50.23 Acute on chronic systolic (congestive) heart failure; I21.A1 Myocardial infarction type 2; N17.9 Acute kidney failure, unspecified; N18.4 Chronic kidney disease, stage 4 (severe); F03.90 Unspecified dementia, unspecified severity, without behavioral disturbance, psychotic disturbance, mood disturbance, and anxiety; E03.9 Hypothyroidism, unspecified; E11.22 Type 2 diabetes mellitus with diabetic chronic kidney disease; I48.91 Unspecified atrial fibrillation; E11.649 Type 2 diabetes mellitus with hypoglycemia without coma; I25.10 Atherosclerotic heart disease of native coronary artery without angina pectoris; I42.9 Cardiomyopathy, unspecified; Z91.19 Patient's noncompliance with other medical treatment and regimen; I25.2 Old myocardial infarction; Z79.82 Long term (current) use of aspirin; Z79.899 Other long term (current) drug therapy; Z95.0 Presence of cardiac pacemaker; Z79.4 Long term (current) use of insulin
CPT/HCPCS: 36415; 36416; 71045; 80048; 80053; 82550; 82553; 83880; 84484; 85025; 93005; 94640; 94760; 96374; 96375; J1644; J1940; J7620